=== PATIENT | male | born 1935 | race Caucasian/White ===

== ENCOUNTER → 2019-07-12 11:53 | Outpatient (BNVA) | payer MEDICARE, SELFPAY | PROVIDERS: Family Provider Family Medicine; PCP Family Medicine; Visit Provider Internal Medicine Cardiovascular Disease | DX: I25.10 Atherosclerotic heart disease of native coronary artery without angina pectoris (principal); E78.2 Mixed hyperlipidemia; I10 Essential (primary) hypertension; J44.9 Chronic obstructive pulmonary disease, unspecified | CPT/HCPCS: 80061 ==

== ENCOUNTER → 2020-03-13 11:52 | Outpatient (BNVA) | payer MEDICARE, SELFPAY | PROVIDERS: Family Provider Family Medicine; PCP Family Medicine; Visit Provider Internal Medicine Cardiovascular Disease | DX: R07.89 Other chest pain (principal); R06.02 Shortness of breath; I50.33 Acute on chronic diastolic (congestive) heart failure; I25.10 Atherosclerotic heart disease of native coronary artery without angina pectoris; E78.2 Mixed hyperlipidemia; I10 Essential (primary) hypertension | CPT/HCPCS: 80048; 83880 ==

== ENCOUNTER → 2020-03-31 09:11 | Outpatient (BNVA) | payer MEDICARE, SELFPAY | PROVIDERS: Family Provider Family Medicine; PCP Family Medicine; Visit Provider Internal Medicine Cardiovascular Disease | DX: I10 Essential (primary) hypertension (principal); I25.10 Atherosclerotic heart disease of native coronary artery without angina pectoris; R06.02 Shortness of breath; R07.89 Other chest pain | CPT/HCPCS: 80048; 83880 ==

== ENCOUNTER 2020-04-16 14:41 | Emergency (ER) | payer MEDICARE, SELFPAY ==
[2020-04-16] VITALS (14 sets, daily range): BP systolic 161–182; BP diastolic 68–82; PULSE 57–80; RESP 14–20; TEMP 36.4–36.7; O2SAT 93–98; BMI 26.2
--- NOTE | 2020-04-16 15:30 | XRR_ITS ---
PROCEDURE INFORMATION: Exam: XR Chest, 1 View Exam date and time: 04/16/2020 4:03 PM Age: 85 years old Clinical indication: Shortness of breath; Additional info: SOB TECHNIQUE: Imaging protocol: XR of the chest Views: 1 view. COMPARISON: [facility] Chest 2 views 07/17/2018 11:31 AM FINDINGS: Lungs: Unremarkable. No consolidation. Pleural space: Unremarkable. No pleural effusion. No pneumothorax. Heart/Mediastinum: Unremarkable. No cardiomegaly. Bones/joints: Unremarkable. XR/XR chest 1V portable [id number] IMPRESSION: No acute findings.
[2020-04-16] MEDS: albuterol 8 gm MDI 2 PUFF INHALATION (15:53)
--- NOTE | 2020-04-16 16:11 | W.ED.SOB ---
HPI - SOB/Dyspnea General: Chief Complaint: Infusion Basil Stated Complaint: NEEDS INFUSION, COVID++ Time Seen by Provider: 04/16/20 15:24 Source: patient Mode of arrival: ambulatory Limitations: no limitations History of Present Illness: HPI Narrative: 85-year-old male who states he has had a slight cough along with some dyspnea and low-grade fever. He was seen at urgent care today and had a rapid Covid that was positive. Patient was sent here for BM infusion he states that he would like to get that infusion. Patient's pulse ox here is 95% and he states that symptoms are mild. He does have a history of COPD and states he uses inhaler at home. He denies any chest pain. Denies any vomiting. Associated symptoms: Deny abdominal pain, chest pain, fever(s), nausea or vomiting Review of Systems Const: Reports: body aches; Denies: fever(s), chills or change in appetite Eyes: Denies: blurry vision or eye discomfort ENMT: Denies: throat pain or dental pain Card: Denies: chest pain Resp: Reports: dyspnea GI: Denies: abdominal pain, nausea, vomiting or diarrhea : Denies: dysuria Musc: Denies: neck pain or back pain Skin/Breast: Denies: rash Neuro: Denies: headache(s) Psych: Denies: depression [place]/Lymph: Denies: easy bruising All/Imm: Denies: urticaria PFSH ED PFSH: Medical History (Updated 04/16/20 @ 16:12 by Cam Garcia MD) ASHD (arteriosclerotic heart disease) Atypical chest pain An EKG was done which revealed a sinus bradycardia with a rate of [address]-T changes. Carotid artery stenosis COPD (chronic obstructive pulmonary disease) Glaucoma History of pancreatitis Hyperlipidemia Hypertension SOB (shortness of breath) Surgical History History of adenoidectomy History of atherectomy History of tonsillectomy Family History Other CAD (coronary artery disease) Social History Smoking and tobacco status: former smoker Alcohol intake: never Physical Exam Const: COMMON NORMALS: no acute distress, patient oriented x3 and healthy appearing HENMT: COMMON NORMALS: normocephalic and atraumatic HEAD & SCALP: normocephalic and atraumatic Eye: COMMON NORMALS: Equal, round and reactive pupils present and EOMs intact bilaterally PUPIL: Yes Equal, round and reactive pupils present Neck/C-Spine: COMMON NORMALS: full ROM and supple Chest: COMMONS NORMALS: normal inspection of the chest and normal palpation of entire chest wall Resp: COMMON NORMALS: normal respiratory effort, No retractions and No use of accessory muscles EFFORT & INSPECTION: Yes audible wheezes Cardio: COMMON NORMALS: regular rate, regular rhythm and No murmurs present (Cardio) RATE: regular rate RHYTHM: regular rhythm GI: COMMON NORMALS: Normal to inspection, nondistended, normoactive bowel sounds present, Soft to palpation, non-tender and no masses PALPATION: Yes Soft to palpation Extremity: COMMON NORMALS: normal to inspection and full ROM Neuro: COMMON NORMALS: patient oriented x3, moves all extremities and no focal motor deficits Psych: COMMON NORMALS: mental status grossly normal, Normal thought process present and cooperative THOUGHT PROCESS: Normal thought process present Skin: COMMON NORMALS: no rashes or lesions noted and no wounds GENERAL SKIN EXAM: no rashes or lesions noted Course Vital Signs: Vital signs: Vital Signs Temperature 97.9 F 04/16/20 17:06 Pulse Rate 57 L 04/16/20 17:06 Respiratory Rate 18 04/16/20 17:06 Blood Pressure 162/73 04/16/20 17:06 Pulse Oximetry 97 04/16/20 17:06 MDM - SOB/Dyspnea MDM Narrative: Medical decision making narrative: Paul presents here after a positive Covid test. Patient is requesting barium infusion and he does meet criteria. He is not requiring any oxygen and x-ray here is clear. Patient is fairly asymptomatic and does not require a further work-up. We will infused Bham and he has been well-appearing and stable for discharge. He is to follow-up his PCP in 3 to 5 days return to ER if worsening. He is to monitor his pulse ox and is to return if less than 92. He understands and agrees to plan. Imaging Data^: CXR: Attestation: I personally reviewed and interpreted this imaging study as follows: Radiologist's impression: [address] [address] XRay Report Signed Patient: Paul Epps Unit #: [id number] : 1935 Age/Sex: 85 / M ADM Date: 04/16/20 Loc: ER Room/Bed: Attending Dr: Ordering Provider/Ordering MD: Cam Garcia MD Date of Service: 04/16/20 Procedure(s): XR chest 1V portable [id number] Accession Number(s): [id number] Report Number: [id number] PROCEDURE INFORMATION: Exam: XR Chest, 1 View Exam date and time: 04/16/2020 4:03 PM Age: 85 years old Clinical indication: Shortness of breath; Additional info: SOB TECHNIQUE: Imaging protocol: XR of the chest Views: 1 view. COMPARISON: [facility] Chest 2 views 07/17/2018 11:31 AM FINDINGS: Lungs: Unremarkable. No consolidation. Pleural space: Unremarkable. No pleural effusion. No pneumothorax. Heart/Mediastinum: Unremarkable. No cardiomegaly. Bones/joints: Unremarkable. XR/XR chest 1V portable [id number] IMPRESSION: No acute findings. Discharge Plan Discharge Patient Disposition: Home Clinical Impression: COVID-19 Condition: Stable Prescriptions: No Action nitroglycerin [Nitrostat] 0.4 mg tablet, sublingual 0.4 mg SUBLINGUAL Q5M PRN (Reason: chest pains) RF: 0 fenofibrate nanocrystallized 145 mg tablet 145 mg PO DAILY@1800 RF: 0 hydrocodone-acetaminophen 5-325 mg tablet 1 tab PO Q8H PRN (Reason: Pain) RF: 0 tamsulosin [Flomax] 0.4 mg capsule 0.4 mg PO DAILY@0600 RF: 0 aspirin [Adult Low Dose Aspirin] 81 mg tablet,delayed release (DR/EC) 81 mg PO DAILY@0600 RF: 0 albuterol sulfate [Ventolin HFA] 90 mcg/actuation HFA aerosol inhaler 2 puff INHALATION Q6H PRN (Reason: Shortness Of Breath) RF: 0 cetirizine [Zyrtec] 10 mg tablet 5 mg PO DAILY@0600 PRN (Reason: allergy sypmpoms) RF: 0 Symbicort 80-4.5 mcg/actuation HFA aerosol inhaler 2 puff INHALATION Q12H RF: 0 carisoprodol 350 mg tablet 350 mg PO TID@0600,12,18 PRN (Reason: Pain) RF: 0 fluticasone furoate 27.5 mcg/actuation spray,suspension 2 spray INTRANASAL DAILY@0600 RF: 0 Lumigan 0.01 % drops 1 drp ophthalmic (eye) DAILY@0600 RF: 0 enalapril maleate 20 mg tablet 20 mg PO BID@0600,1800 RF: 0 amlodipine 2.5 mg tablet 2.5 mg PO DAILY@0600 RF: 0 pravastatin 80 mg tablet 80 mg PO DAILY@0600 RF: 0 metoprolol tartrate 50 mg tablet 100 mg PO BID@0600,1800 RF: 0 furosemide 20 mg tablet 20 mg PO DAILY@0600 RF: 0 Nitro-Time 6.5 mg capsule, extended release 6.5 mg PO BID@0600,1800 RF: 0 potassium chloride 10 mEq tablet,ER particles/crystals 10 meq PO DAILY@0600 RF: 0 Discharge Orders: Discharge ED (Routine); Ordered 04/16/20 Ordered By: Cam Garcia Referrals: Dakotah Burgess MD [Primary Care Provider] - 1-3 days Discharge Diet: Advance as tolerated Discharge Activity: Resume usual activity Patient Instructions: Upper Respiratory Infection (ED) Coding Level of Care 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
[2020-04-16] MEDS: dexamethasone 4 mg/mL INJ 10 MG IVP (16:13)
--- NOTE | 2020-04-16 17:59 | PC.NURSE ---
BAM infusion completed
--- NOTE | 2020-04-18 09:27 | DCPLANNER ---
Addendum entered by Meron Muñiz 04/28/20 10:55: Patients stated that patient is doing really good, no fever, breathing is good, no cough at this time. Addendum entered by Meron Muñiz 04/28/20 10:53: distributed generation project manager spoke with patients , she stated that patient was feeling really good. Patient went to his follow up appointment scheduled for 04.22.[address] Chandler. Patients stated that patient was taking at nap at this time, but he was feeling really good. Addendum entered by Meron Muñiz 04/21/20 15:02: Spoke with patient, he stated that he is getting better, he can breath better, no cough, no fever. Patient stated that he does have a head cold, and that his chest is good. He stated that it is a slow process but that he is getting better. distributed generation project manager reminded patient of his appointment tomorrow with Dr. Burgess. Original Note: late entry - distributed generation project manager had message that patient received the BAM infusion on 04.16.20. distributed generation project manager called and spoke with patient on 04.17.20. Patient stated that he tolerated the infusion well, that it did not seem to bother him. Stated that his biggest symptom was coughing which he stated was not as bad. Patient stated that he thought that he had a really bad cough and was spitting up green stuff. Stated that he never had a fever, but that he was short of breath, and that his shortness of breath has gotten better. distributed generation project manager asked patient if he had a follow up appointment with his primary care, patient stated that he did not. distributed generation project manager called [facility], a follow up appointment was scheduled for Wednesday, April 22, 2020 at 9:[address] Burgess. distributed generation project manager called patient and gave patient the appointment information.
== END 2020-04-16 19:06 | disposition home or self-care (01) ==
PROVIDERS: Emergency Provider Emergency Medicine; PCP Family Medicine
DX: U07.1 COVID-19 (principal); Z79.82 Long term (current) use of aspirin; J44.9 Chronic obstructive pulmonary disease, unspecified; E78.5 Hyperlipidemia, unspecified; I10 Essential (primary) hypertension; Z87.891 Personal history of nicotine dependence
CPT/HCPCS: 12345; 71045; 94640; 96365; 96375; 99283; J1100; J3535; J7050

== ENCOUNTER 2020-05-20 14:02 | Emergency (ER) | payer OTHER, MEDICARE, SELFPAY ==
[2020-05-20 14:04] VITALS: BP 136/88; PULSE 64; RESP 24; TEMP 36.2; O2SAT 93; BMI 25.8
--- NOTE | 2020-05-20 14:10 | ED_ITS ---
HPI - Male Genitourinary General: Stated complaint: passing blood Time Seen by Provider: 05/20/20 14:09 [facility] ED PFSH: Medical History (Updated 04/16/20 @ 16:12 by Cam Garcia MD) ASHD (arteriosclerotic heart disease) Atypical chest pain An EKG was done which revealed a sinus bradycardia with a rate of [address]-T changes. Carotid artery stenosis COPD (chronic obstructive pulmonary disease) Glaucoma History of pancreatitis Hyperlipidemia Hypertension SOB (shortness of breath) Surgical History History of adenoidectomy History of atherectomy History of tonsillectomy Family History Other CAD (coronary artery disease) Social History Smoking and tobacco status: former smoker Alcohol intake: never Discharge Plan Discharge Prescriptions: No Action nitroglycerin [Nitrostat] 0.4 mg tablet, sublingual 0.4 mg SUBLINGUAL Q5M PRN (Reason: chest pains) RF: 0 fenofibrate nanocrystallized 145 mg tablet 145 mg PO DAILY@1800 RF: 0 hydrocodone-acetaminophen 5-325 mg tablet 1 tab PO Q8H PRN (Reason: Pain) RF: 0 tamsulosin [Flomax] 0.4 mg capsule 0.4 mg PO DAILY@0600 RF: 0 aspirin [Adult Low Dose Aspirin] 81 mg tablet,delayed release (DR/EC) 81 mg PO DAILY@0600 RF: 0 albuterol sulfate [Ventolin HFA] 90 mcg/actuation HFA aerosol inhaler 2 puff INHALATION Q6H PRN (Reason: Shortness Of Breath) RF: 0 cetirizine [Zyrtec] 10 mg tablet 5 mg PO DAILY@0600 PRN (Reason: allergy sypmpoms) RF: 0 Symbicort 80-4.5 mcg/actuation HFA aerosol inhaler 2 puff INHALATION Q12H RF: 0 carisoprodol 350 mg tablet 350 mg PO TID@0600,12,18 PRN (Reason: Pain) RF: 0 fluticasone furoate 27.5 mcg/actuation spray,suspension 2 spray INTRANASAL DAILY@0600 RF: 0 Lumigan 0.01 % drops 1 drp ophthalmic (eye) DAILY@0600 RF: 0 enalapril maleate 20 mg tablet 20 mg PO BID@0600,1800 RF: 0 amlodipine 2.5 mg tablet 2.5 mg PO DAILY@0600 RF: 0 pravastatin 80 mg tablet 80 mg PO DAILY@0600 RF: 0 metoprolol tartrate 50 mg tablet 100 mg PO BID@0600,1800 RF: 0 furosemide 20 mg tablet 20 mg PO DAILY@0600 RF: 0 Nitro-Time 6.5 mg capsule, extended release 6.5 mg PO BID@0600,1800 RF: 0 potassium chloride 10 mEq tablet,ER particles/crystals 10 meq PO DAILY@0600 RF: 0 Coding Level of Care 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
[2020-05-20 14:14] VITALS: BP 136/88; PULSE 54; RESP 16; O2SAT 92
--- NOTE | 2020-05-20 14:18 | ED_ITS ---
Documented by User: SHANA Hay 05/22/20 07:08 HPI - GI Bleed General: Chief complaint: Abdominal Pain Stated complaint: passing blood Time Seen by Provider: 05/20/20 14:09 Source: patient Mode of arrival: ambulatory Limitations: no limitations History of Present Illness: HPI Narrative: Patient is a nice 85-year-old male who presents to ED today with a complaint of bloody stools. Patient tells me this morning for breakfast he had poached eggs that did not sit well . He states he went to the restroom and sat on the toilet and began feeling nauseous. He states he had 2-3 episodes of non-bloody vomit. Patient then states he defecated and noticed approximately a cup of bright red blood in his stool. Patient states since that episode he has had approximately 10 further episodes of hematochezia. He is having lower abdominal pain and an urge to defecate currently. He has not been running fevers. He has no urinary symptoms. He bray s have a history of internal hemorrhoids that have never caused him any previous issues. He has no history of GI bleeds. He is not on anticoagulation. MD complaint: gross hematochezia Onset (ago): hour(s) Pain Consistency: constant Exacerbating factors: bowel movement Associated symptoms: Reports abdominal pain; Denies chills, fever(s), headache(s), malaise, nausea, rash or vomiting Treatments Prior to Arrival: none Review of Systems Const: Denies: fever(s), chills, body aches, fatigue or malaise Card: Denies: chest pain Resp: Denies: dyspnea GI: Reports: abdominal pain and hematochezia; Denies: nausea, vomiting, diarrhea or constipation : Denies: flank pain, difficulty urinating, dysuria, urinary frequency, urinary urgency or urinary hesitancy Musc: Denies: neck pain or back pain Skin/Breast: Denies: rash Neuro: Denies: headache(s) [facility] ED PFSH: Medical History (Updated 05/20/20 @ 19:02 by DAMI Conroy) ASHD (arteriosclerotic heart disease) Atypical chest pain An EKG was done which revealed a sinus bradycardia with a rate of [address]-T changes. Carotid artery stenosis COPD (chronic obstructive pulmonary disease) Glaucoma History of pancreatitis Hyperlipidemia Hypertension SOB (shortness of breath) Surgical History History of adenoidectomy History of atherectomy History of tonsillectomy Family History Other CAD (coronary artery disease) Social History Smoking and tobacco status: former smoker Alcohol intake: never Physical Exam Const: COMMON NORMALS: no acute distress, average body habitus, patient oriented x3, no limitations, healthy appearing, alert and well nourished Resp: COMMON NORMALS: normal respiratory effort and clear to auscultation bilaterally EFFORT & INSPECTION: Yes able to speak in complete sentences AUSCULTATION: clear to auscultation bilaterally Cardio: COMMON NORMALS: regular rate and regular rhythm RATE: regular rate RHYTHM: regular rhythm GI: COMMON NORMALS: Normal to inspection, nondistended, normoactive bowel sounds present, Soft to palpation, No hepatosplenomegaly present and no masses PALPATION: Yes Soft to palpation, Yes Tenderness to palpation present (GI) (throughout lower abdomen) and Yes No hepatosplenomegaly present RECTAL EXAM: Yes visual inspection normal, Yes normal sphincter tone and Yes heme positive stool OTHER: pt had BM while in room and I was able to visualize; pt had no stool present but did have approx 20cc of bright red blood with mucous present : COMMON NORMALS: Yes no CVA tenderness BLADDER/KIDNEY EXAM: Yes no CVA tenderness Back/Pelvis: COMMON NORMALS: no CVA tenderness Neuro: COMMON NORMALS: patient oriented x3 SENSORIUM/ORIENTATION: Yes alert Skin: COMMON NORMALS: no rashes or lesions noted GENERAL SKIN EXAM: no rashes or lesions noted Course Vital Signs: Vital signs: Vital Signs Temperature 97.2 F L 05/20/20 14:04 Pulse Rate 55 L 05/20/20 17:12 Respiratory Rate 16 05/20/20 17:12 Blood Pressure 164/72 05/20/20 15:27 Pulse Oximetry 91 05/20/20 17:12 MDM - GI Bleed MDM Narrative: Medical decision making narrative: Patient currently is hemodynamically stable at this time. He has had two bloody stools while here measuring a total of approximately 30-44cc. Hemoglobin is 12.8. Care is transferred to DAMI Conroy. We are pending pts CMP at this time so CT can take him for his scan. Lab Data: Labs: Lab Results 05/20/20 05/20/20 05/20/20 Range/Units 14:30 14:30 14:30 WBC 10.7 H (4.0-10.0) 10^3/ uL RBC 4.09 L (4.1-5.3) 10^6/u L Hgb 12.8 (11.7-16.6) g/dL Hct 40.3 L (42.0-52.0) % MCV 98.5 H (80-94) fL MCH 31.3 (28.0-34.0) pg MCHC 31.8 (30.0-36.0) g/dL RDW 13.0 (12.1-15.1) % Plt Count 232 (130-400) 10^3/c mm MPV 9.2 (7.4-10.4) fL Neut % (Auto) 78.8 % Lymph % (Auto) 12.9 % Ida % (Auto) 6.6 % Eos % (Auto) 0.9 % Baso % (Auto) 0.3 % Neut # (Auto) 8.40 H (1.8-7.7) 10^3/u L Lymph # (Auto) 1.4 (0.8-4.8) 10^3/u L Ida # (Auto) 0.7 (0.2-0.9) 10^3/u L Eos # (Auto) 0.1 (0.0-0.8) 10^3/u L Baso # (Auto) 0.0 (0.0-0.1) 10^3/u L Nucleated RBC % (a uto) 0 % Nucleated RBCs # 0.0 /100WBC PT 13.20 (12.1-14.9) SECO NDS INR 0.97 (0.8-1.2) APTT 27.7 (23.9-36.7) SECO NDS Sodium Cancelled Potassium Cancelled Chloride Cancelled Carbon Dioxide Cancelled Anion Gap Cancelled BUN Cancelled Creatinine Cancelled GFR Calculation Cancelled Glucose Cancelled Calculated Osmolal ity Cancelled Lactic Acid (0.5-2.2) mmol/L Calcium Cancelled Total Bilirubin Cancelled AST Cancelled ALT Cancelled Alkaline Phosphata se Cancelled Total Protein Cancelled Albumin Cancelled Globulin Cancelled Urine Color (Yellow) Urine Appearance (CLEAR) Urine pH (5-7) Ur Specific Gravit y (1.005-1.030) Urine Protein (Negative) Urine Glucose (UA) (Normal) Urine Ketones (Negative) Urine Blood (Negative) Urine Nitrate (Negative) Urine Bilirubin (Negative) Urine Urobilinogen (Negative) mg/dL Ur Leukocyte Ana ase (Negative) 05/20/20 05/20/20 05/20/20 Range/Units 14:30 14:49 16:18 WBC (4.0-10.0) 10^3/ uL RBC (4.1-5.3) 10^6/u L Hgb (11.7-16.6) g/dL Hct (42.0-52.0) % MCV (80-94) fL MCH (28.0-34.0) pg MCHC (30.0-36.0) g/dL RDW (12.1-15.1) % Plt Count (130-400) 10^3/c mm MPV (7.4-10.4) fL Neut % (Auto) % Lymph % (Auto) % Ida % (Auto) % Eos % (Auto) % Baso % (Auto) % Neut # (Auto) (1.8-7.7) 10^3/u L Lymph # (Auto) (0.8-4.8) 10^3/u L Ida # (Auto) (0.2-0.9) 10^3/u L Eos # (Auto) (0.0-0.8) 10^3/u L Baso # (Auto) (0.0-0.1) 10^3/u L Nucleated RBC % (a uto) % Nucleated RBCs # /100WBC PT (12.1-14.9) SECO NDS INR (0.8-1.2) APTT (23.9-36.7) SECO NDS Sodium 135 L Potassium 5.3 H Chloride 101 Carbon Dioxide 22 Anion Gap 17.3 BUN 29 H Creatinine 1.7 H GFR Calculation Not Reportable Glucose 119 H Calculated Osmolal ity 287 Lactic Acid 1.0 (0.5-2.2) mmol/L Calcium 8.9 Total Bilirubin 0.6 AST 15 ALT 11 Alkaline Phosphata se 57 Total Protein 6.4 L Albumin 3.8 Globulin 2.6 Urine Color Yellow (Yellow) Urine Appearance Clear (CLEAR) Urine pH 5 (5-7) Ur Specific Gravit y 1.020 (1.005-1.030) Urine Protein Neg (Negative) Urine Glucose (UA) Norm (Normal) Urine Ketones Negative (Negative) Urine Blood Neg (Negative) Urine Nitrate Negative (Negative) Urine Bilirubin Neg (Negative) Urine Urobilinogen Norm (Negative) mg/dL Ur Leukocyte Ana ase Negative (Negative) Discharge Plan Discharge Patient Disposition: Home Clinical Impression: Colitis, Hematochezia, Hemorrhoids, internal Condition: Stable Prescriptions: New ciprofloxacin HCl 500 mg tablet 500 mg PO BID Qty: 14 RF: 0 Flagyl 500 mg tablet 500 mg PO BID 7 Days Qty: 14 RF: 0 No Action nitroglycerin [Nitrostat] 0.4 mg tablet, sublingual 0.4 mg SUBLINGUAL Q5M PRN (Reason: chest pains) RF: 0 fenofibrate nanocrystallized 145 mg tablet 145 mg PO DAILY@1800 RF: 0 hydrocodone-acetaminophen 5-325 mg tablet 1 - 2 tab PO TID PRN (Reason: Pain) RF: 0 tamsulosin [Flomax] 0.4 mg capsule 0.4 mg PO BID@06,18 RF: 0 aspirin [Adult Low Dose Aspirin] 81 mg tablet,delayed release (DR/EC) 81 mg PO DAILY@18 RF: 0 albuterol sulfate [Ventolin HFA] 90 mcg/actuation HFA aerosol inhaler 2 puff INHALATION QID PRN (Reason: Shortness Of Breath) RF: 0 cetirizine [Zyrtec] 10 mg tablet 10 mg PO DAILY PRN (Reason: Allergic Symptoms) RF: 0 Symbicort 80-4.5 mcg/actuation HFA aerosol inhaler 2 puff INHALATION Q12H RF: 0 carisoprodol 350 mg tablet 350 mg PO BID PRN (Reason: Pain) RF: 0 Lumigan 0.01 % drops 1 drp ophthalmic (eye) DAILY@18 RF: 0 enalapril maleate 20 mg tablet 20 mg PO BID@0600,1800 RF: 0 amlodipine 2.5 mg tablet 2.5 mg PO DAILY@0600 RF: 0 pravastatin 80 mg tablet 80 mg PO DAILY@18 RF: 0 metoprolol tartrate 50 mg tablet 75 mg PO Q12H RF: 0 furosemide 20 mg tablet 20 mg PO DAILY@0600 RF: 0 nitroglycerin [Nitro-Time] 6.5 mg capsule, extended release 6.5 mg PO BID@0600,1800 RF: 0 promethazine-DM 6.25-15 mg/5 mL Syrup 5 - 10 ml PO Q4H PRN (Reason: Cough) RF: 0 Vitamin C 500 mg Tablet 500 mg PO DAILY RF: 0 Flonase 50 mcg/actuation [facility],Suspension 2 spray INTRANASAL DAILY PRN (Reason: Allergy Symptoms) RF: 0 Centrum Silver Tablet 1 tab PO DAILY RF: 0 Spiriva with HandiHaler 18 mcg capsule, w/inhalation device 1 cap INHALATION DAILY RF: 0 Discharge Orders: Discharge ED (Routine); Ordered 05/20/20 Ordered By: Quinten Lopez Referrals: Dakotah Burgess MD [Primary Care Provider] - Discharge Diet: Advance as tolerated Discharge Activity: Increase activity as tolerated Patient Instructions: Rectal Bleeding (ED), Infectious Colitis (ED) Activity Restrictions/Additional Instructions: Follow-up with medical provider as directed. Take medications as prescribed. Return to the ER or your medical provider if condition worsens. Please read and understand discharge instructions. If any questions ask please. Follow-up Dr. Burgess see about getting a repeat abdominal imaging done to look at the area that was found in the right pectineus muscle. If symptoms do not improve follow-up with Dr. Burgess or return here. Can use Preparation H to help with hemorrhoids. Coding Level of Care Code ED Assistant Merchandiser for Chg Fwd Exam Detailed Documented by User: DAMI Conroy 05/21/20 02:00 HPI - GI Bleed General: Chief complaint: Abdominal Pain Stated complaint: passing blood Time Seen by Provider: 05/20/20 14:09 [facility] ED PFS: Medical History (Updated 05/20/20 @ 19:02 by DAMI Conroy) ASHD (arteriosclerotic heart disease) Atypical chest pain An EKG was done which revealed a sinus bradycardia with a rate of [address]-T changes. Carotid artery stenosis COPD (chronic obstructive pulmonary disease) Glaucoma History of pancreatitis Hyperlipidemia Hypertension SOB (shortness of breath) Surgical History History of adenoidectomy History of atherectomy History of tonsillectomy Family History Other CAD (coronary artery disease) Social History Smoking and tobacco status: former smoker Alcohol intake: never Course Vital Signs: Vital signs: Vital Signs Temperature 97.2 F L 05/20/20 14:04 Pulse Rate 55 L 05/20/20 17:12 Respiratory Rate 16 05/20/20 17:12 Blood Pressure 164/72 05/20/20 15:27 Pulse Oximetry 91 05/20/20 17:12 MDM - GI Bleed Lab Data: Labs: Lab Results 05/20/20 05/20/20 05/20/20 Range/Units 14:30 14:30 14:30 WBC 10.7 H (4.0-10.0) 10^3/ uL RBC 4.09 L (4.1-5.3) 10^6/u L Hgb 12.8 (11.7-16.6) g/dL Hct 40.3 L (42.0-52.0) % MCV 98.5 H (80-94) fL MCH 31.3 (28.0-34.0) pg MCHC 31.8 (30.0-36.0) g/dL RDW 13.0 (12.1-15.1) % Plt Count 232 (130-400) 10^3/c mm MPV 9.2 (7.4-10.4) fL Neut % (Auto) 78.8 % Lymph % (Auto) 12.9 % Ida % (Auto) 6.6 % Eos % (Auto) 0.9 % Baso % (Auto) 0.3 % Neut # (Auto) 8.40 H (1.8-7.7) 10^3/u L Lymph # (Auto) 1.4 (0.8-4.8) 10^3/u L Ida # (Auto) 0.7 (0.2-0.9) 10^3/u L Eos # (Auto) 0.1 (0.0-0.8) 10^3/u L Baso # (Auto) 0.0 (0.0-0.1) 10^3/u L Nucleated RBC % (a uto) 0 % Nucleated RBCs # 0.0 /100WBC PT 13.20 (12.1-14.9) SECO NDS INR 0.97 (0.8-1.2) APTT 27.7 (23.9-36.7) SECO NDS Sodium Cancelled Potassium Cancelled Chloride Cancelled Carbon Dioxide Cancelled Anion Gap Cancelled BUN Cancelled Creatinine Cancelled GFR Calculation Cancelled Glucose Cancelled Calculated Osmolal ity Cancelled Lactic Acid (0.5-2.2) mmol/L Calcium Cancelled Total Bilirubin Cancelled AST Cancelled ALT Cancelled Alkaline Phosphata se Cancelled Total Protein Cancelled Albumin Cancelled Globulin Cancelled Urine Color (Yellow) Urine Appearance (CLEAR) Urine pH (5-7) Ur Specific Gravit y (1.005-1.030) Urine Protein (Negative) Urine Glucose (UA) (Normal) Urine Ketones (Negative) Urine Blood (Negative) Urine Nitrate (Negative) Urine Bilirubin (Negative) Urine Urobilinogen (Negative) mg/dL Ur Leukocyte Ana ase (Negative) 05/20/20 05/20/20 05/20/20 Range/Units 14:30 14:49 16:18 WBC (4.0-10.0) 10^3/ uL RBC (4.1-5.3) 10^6/u L Hgb (11.7-16.6) g/dL Hct (42.0-52.0) % MCV (80-94) fL MCH (28.0-34.0) pg MCHC (30.0-36.0) g/dL RDW (12.1-15.1) % Plt Count (130-400) 10^3/c mm MPV (7.4-10.4) fL Neut % (Auto) % Lymph % (Auto) % Ida % (Auto) % Eos % (Auto) % Baso % (Auto) % Neut # (Auto) (1.8-7.7) 10^3/u L Lymph # (Auto) (0.8-4.8) 10^3/u L Ida # (Auto) (0.2-0.9) 10^3/u L Eos # (Auto) (0.0-0.8) 10^3/u L Baso # (Auto) (0.0-0.1) 10^3/u L Nucleated RBC % (a uto) % Nucleated RBCs # /100WBC PT (12.1-14.9) SECO NDS INR (0.8-1.2) APTT (23.9-36.7) SECO NDS Sodium 135 L Potassium 5.3 H Chloride 101 Carbon Dioxide 22 Anion Gap 17.3 BUN 29 H Creatinine 1.7 H GFR Calculation Not Reportable Glucose 119 H Calculated Osmolal ity 287 Lactic Acid 1.0 (0.5-2.2) mmol/L Calcium 8.9 Total Bilirubin 0.6 AST 15 ALT 11 Alkaline Phosphata se 57 Total Protein 6.4 L Albumin 3.8 Globulin 2.6 Urine Color Yellow (Yellow) Urine Appearance Clear (CLEAR) Urine pH 5 (5-7) Ur Specific Gravit y 1.020 (1.005-1.030) Urine Protein Neg (Negative) Urine Glucose (UA) Norm (Normal) Urine Ketones Negative (Negative) Urine Blood Neg (Negative) Urine Nitrate Negative (Negative) Urine Bilirubin Neg (Negative) Urine Urobilinogen Norm (Negative) mg/dL Ur Leukocyte Ana ase Negative (Negative) Discharge Plan Discharge Patient Disposition: Home Clinical Impression: Colitis, Hematochezia, Hemorrhoids, internal Condition: Stable Prescriptions: New ciprofloxacin HCl 500 mg tablet 500 mg PO BID Qty: 14 RF: 0 Flagyl 500 mg tablet 500 mg PO BID 7 Days Qty: 14 RF: 0 No Action nitroglycerin [Nitrostat] 0.4 mg tablet, sublingual 0.4 mg SUBLINGUAL Q5M PRN (Reason: chest pains) RF: 0 fenofibrate nanocrystallized 145 mg tablet 145 mg PO DAILY@1800 RF: 0 hydrocodone-acetaminophen 5-325 mg tablet 1 - 2 tab PO TID PRN (Reason: Pain) RF: 0 tamsulosin [Flomax] 0.4 mg capsule 0.4 mg PO BID@06,18 RF: 0 aspirin [Adult Low Dose Aspirin] 81 mg tablet,delayed release (DR/EC) 81 mg PO DAILY@18 RF: 0 albuterol sulfate [Ventolin HFA] 90 mcg/actuation HFA aerosol inhaler 2 puff INHALATION QID PRN (Reason: Shortness Of Breath) RF: 0 cetirizine [Zyrtec] 10 mg tablet 10 mg PO DAILY PRN (Reason: Allergic Symptoms) RF: 0 Symbicort 80-4.5 mcg/actuation HFA aerosol inhaler 2 puff INHALATION Q12H RF: 0 carisoprodol 350 mg tablet 350 mg PO BID PRN (Reason: Pain) RF: 0 Lumigan 0.01 % drops 1 drp ophthalmic (eye) DAILY@18 RF: 0 enalapril maleate 20 mg tablet 20 mg PO BID@0600,1800 RF: 0 amlodipine 2.5 mg tablet 2.5 mg PO DAILY@0600 RF: 0 pravastatin 80 mg tablet 80 mg PO DAILY@18 RF: 0 metoprolol tartrate 50 mg tablet 75 mg PO Q12H RF: 0 furosemide 20 mg tablet 20 mg PO DAILY@0600 RF: 0 nitroglycerin [Nitro-Time] 6.5 mg capsule, extended release 6.5 mg PO BID@0600,1800 RF: 0 promethazine-DM 6.25-15 mg/5 mL Syrup 5 - 10 ml PO Q4H PRN (Reason: Cough) RF: 0 Vitamin C 500 mg Tablet 500 mg PO DAILY RF: 0 Flonase 50 mcg/actuation [facility],Suspension 2 spray INTRANASAL DAILY PRN (Reason: Allergy Symptoms) RF: 0 Centrum Silver Tablet 1 tab PO DAILY RF: 0 Spiriva with HandiHaler 18 mcg capsule, w/inhalation device 1 cap INHALATION DAILY RF: 0 Discharge Orders: Discharge ED (Routine); Ordered 05/20/20 Ordered By: Quinten Lopez Referrals: Dakotah Burgess MD [Primary Care Provider] - Discharge Diet: Advance as tolerated Discharge Activity: Increase activity as tolerated Patient Instructions: Rectal Bleeding (ED), Infectious Colitis (ED) Activity Restrictions/Additional Instructions: Follow-up with medical provider as directed. Take medications as prescribed. R eturn to the ER or your medical provider if condition worsens. Please read and understand discharge instructions. If any questions ask please. Follow-up Dr. Burgess see about getting a repeat abdominal imaging done to look at the area that was found in the right pectineus muscle. If symptoms do not improve follow-up with Dr. Burgess or return here. Can use Preparation H to help with hemorrhoids. Coding Level of Care Code ED Assistant Merchandiser for Chg Fwd Exam Detailed
--- NOTE | 2020-05-20 14:21 | CTR_ITS ---
PROCEDURE INFORMATION: Exam: CT Abdomen And Pelvis With Contrast Exam date and time: 05/20/2020 6:09 PM Age: 85 years old Clinical indication: Abdominal pain; Localized; Lower; Additional info: Lower abdominal pain, hematochezia TECHNIQUE: Imaging protocol: Computed tomography of the abdomen and pelvis with intravenous contrast. Radiation optimization: All CT scans at this facility use at least one of these dose optimization techniques: automated exposure control; mA and/or kV adjustment per patient size (includes targeted exams where dose is matched to clinical indication); or iterative reconstruction. Contrast material: VISI 320; Contrast volume: 95 ml; Contrast route: INTRAVENOUS (IV); COMPARISON: No relevant prior studies available. RADIATION DOSE METRICS: Total DLP (mGy-cm): 572.54 FINDINGS: Liver: Subcentimeter hypodensity in the left liver lobe is too small to characterize but is most likely a cyst. No follow-up is recommended. Gallbladder and bile ducts: Normal. No calcified stones. No ductal dilation. Pancreas: Small calcifications in the uncinate process, consistent with prior calcific pancreatitis. Spleen: Normal. No splenomegaly. Adrenal glands: Normal. No mass. Kidneys and ureters: Mild perinephric stranding is most likely physiologic. The kidneys are otherwise unremarkable. No calculus or hydronephrosis. Stomach and bowel: Diverticulosis of the distal descending and proximal sigmoid colon. There is mild circumferential wall thickening and enhancement in the distal descending and proximal sigmoid colon without significant fat stranding. The remainder of the colon is unremarkable. The stomach and small bowel are unremarkable. Appendix: The appendix is visualized and is normal. Intraperitoneal space: Unremarkable. No free air. No significant fluid collection. Vasculature: Unremarkable. No abdominal aortic aneurysm. Lymph nodes: Unremarkable. No enlarged lymph nodes. Urinary bladder: Unremarkable as visualized. Reproductive: Coarse calcifications in the prostate. Bones/joints: Unremarkable. No acute fracture. Soft tissues: Unremarkable. Other findings: Hyperdense inhomogenous expansile lesion in the right pectineus muscle. CT/CT abdomen pelvis w con* [id number] IMPRESSION: 1. Mild wall thickening and enhancement in the distal descending and proximal sigmoid colon most likely represents infectious versus inflammatory colitis and less likely diverticulitis. 2. Inhomogenous hyperdense expansile lesion in the right pectineus muscle. This could represent an intramuscular hematoma. A soft tissue neoplasm is not excluded. Clinical correlation is recommended. This can be further evaluated with MRI. Radiation Dose CTDIVOL = (mGy): DLP = 572.54 (mGy-cm)
[2020-05-20 14:34] LABS: Basophils % 0.3 %; Eosinophils # 0.1 10^3/uL (0.0-0.8); Eosinophils % 0.9 %; Hematocrit 40.3 % (42.0-52.0); Hemoglobin 12.8 g/dL (11.7-16.6); Lymphocytes # 1.4 10^3/uL (0.8-4.8); Lymphocytes % 12.9 %; Mean Corpuscular HGB Conc 31.8 g/dL (30.0-36.0); Mean Corpuscular Hemoglobin 31.3 pg (28.0-34.0); Mean Corpuscular Volume 98.5 fL (80-94); Mean Platelet Volume 9.2 fL (7.4-10.4); Monocytes # 0.7 10^3/uL (0.2-0.9); Monocytes % 6.6 %; Neutrophils % 78.8 %; Nucleated Red Blood Cells % 0 %; Platelet Count 232 10^3/cmm (130-400); Red Blood Count 4.09 10^6/uL (4.1-5.3); White Blood Count 10.7 10^3/uL (4.0-10.0)
[2020-05-20 14:59] LABS: Add Urine Microscopic? NO
[2020-05-20 15:07] LABS: Bilirubin Urine Neg (Negative); Blood Urine Neg (Negative); Glucose Urine UA Norm (Normal); Ketones Urine Negative (Negative); Leukocyte Esterase Urine Negative (Negative); Nitrate Urine Negative (Negative); Protein Urine Neg (Negative); Urine Appearance Clear (CLEAR); Urine Color Yellow (Yellow); Urobilinogen Urine Norm (Negative); pH Urine 5 (5-7)
[2020-05-20 15:11] LABS: INR 0.97 (0.8-1.2); Partial Thromboplastin Time 27.7 SECONDS (23.9-36.7)
[2020-05-20 15:24] VITALS: BP 172/63; PULSE 65; RESP 14; O2SAT 94
[2020-05-20 15:27] VITALS: BP 134/64; BP 161/69; BP 164/72; PULSE 52; PULSE 53; PULSE 59
[2020-05-20] MEDS: ondansetron 2 mg/ML SDV 2 mL 4 MG IVP (17:11)
[2020-05-20] MEDS: morphine 4 mg/mL SDV 1 mL IVP (17:11)
[2020-05-20 17:12] VITALS: PULSE 55; RESP 16; O2SAT 91
[2020-05-20 17:59] LABS: Alanine Aminotransferase 11 U/L (0-41); Albumin Level 3.8 g/dL (3.5-5.2); Alkaline Phosphatase 57 IU/L (40-130); Anion Gap 17.3 (5-19); Aspartate Amino Transferase 15 U/L (0-40); Blood Urea Nitrogen 29 mg/dL (8-23); Calcium 8.9 mg/dL (8.5-10.5); Carbon Dioxide 22 mmol/L (22-29); Chloride 101 mmol/L (98-107); Globulin 2.6 g/dL (1.3-4.6); Glucose 119 mg/dL (65-115); Osmolality Calculated 287 mOsm/kg (285-295); Potassium 5.3 mmol/L (3.5-5.1); Sodium 135 mmol/L (136-145); Total Bilirubin 0.6 mg/dL (0.15-1.2); Total Protein 6.4 g/dL (6.6-8.7)
[2020-05-20] MEDS: iodixanol 320 mg/mL 100mL Btl IV (18:19)
[2020-05-20] MEDS: ciprofloxacin 500 mg Tablet PO (19:11)
[2020-05-20] MEDS: metroNIDAZOLE 500 MG Tablet PO (19:11)
== END 2020-05-20 19:18 | disposition home or self-care (01) ==
PROVIDERS: Physician Assistant; Emergency Provider Nurse Practitioner Family; PCP Family Medicine
DX: K52.9 Noninfective gastroenteritis and colitis, unspecified (principal); K92.1 Melena; K64.8 Other hemorrhoids; Z79.82 Long term (current) use of aspirin; J44.9 Chronic obstructive pulmonary disease, unspecified; E78.5 Hyperlipidemia, unspecified; I10 Essential (primary) hypertension; Z87.891 Personal history of nicotine dependence
CPT/HCPCS: 12345; 36415; 74177; 80053; 81003; 83605; 85025; 85610; 85730; 96374; 96375; 99283; J2270; J2405; Q9967

== ENCOUNTER 2021-01-26 13:05 | Inpatient (IN) | payer MEDICARE, SELFPAY ==
[2021-01-26] VITALS (14 sets, daily range): BP systolic 121–174; BP diastolic 62–86; PULSE 51–69; RESP 14–26; TEMP 36.6–36.9; O2SAT 92–97
--- NOTE | 2021-01-26 13:30 | XRR_ITS ---
PROCEDURE INFORMATION: Exam: XR Chest Exam date and time: 01/26/2021 1:30 PM Age: 85 years old Clinical indication: Shortness of breath for 1 week. Low oxygen saturation (87%) TECHNIQUE: Imaging protocol: XR of the chest. Views: 1 view. COMPARISON: CR XR chest 1V portable [id number] 04/16/2020 3:48 PM FINDINGS: Lungs: There are multiple masses identified in the chest bilaterally likely reflecting metastatic disease. The largest mass is situated in the mid right chest and measures 5.1 cm. Pleural spaces: No pleural effusion.; No pneumothorax. Heart/Mediastinum: The cardiac silhouette is approximately unchanged. No gross evidence of pneumomediastinum. Bones/joints: No gross fracture. XR/XR chest 1V portable [id number] IMPRESSION: Multiple masses identified in the chest bilaterally likely reflecting metastatic disease. Recommend CT chest with contrast to further assess.
--- NOTE | 2021-01-26 13:30 | ECG_ITS ---
[facility] Test Date: 2021-01-26 Pat Name: Paul Epps Department: Room: Gender: Male Posting Clerk: : [id number] Requested By: Unruly Arechiga Order Number: [id number] Reading MD: Measurements Intervals Sarah Rate: 65 P: 64 MA: 174 QRS: 71 QRSD: 98 T: 56 QT: 411 QTc: 428 Interpretive Statements SINUS RHYTHM WITH OCCASIONAL VENTRICULAR PREMATURE COMPLEXES No previous ECG available for comparison [id number]
[2021-01-26 13:46] LABS: Basophils % 0.2 %; Eosinophils # 0.1 10^3/uL (0.0-0.8); Eosinophils % 0.7 %; Hematocrit 33.2 % (42.0-52.0); Hemoglobin 10.6 g/dL (11.7-16.6); Lymphocytes % 9.3 %; Mean Corpuscular HGB Conc 31.9 g/dL (30.0-36.0); Mean Platelet Volume 8.6 fL (7.4-10.4); Monocytes # 0.9 10^3/uL (0.2-0.9); Monocytes % 9.1 %; Neutrophils # 8.22 10^3/uL (1.8-7.7); Neutrophils % 80.2 %; Nucleated Red Blood Cells % 0 %; Platelet Count 265 10^3/cmm (130-400); Red Blood Count 3.65 10^6/uL (4.1-5.3); Red Cell Distribution Width 13.1 % (12.1-15.1); White Blood Count 10.2 10^3/uL (4.0-10.0)
[2021-01-26 14:10] LABS: Troponin(5th) Baseline 16 ng/L (0-15)
--- NOTE | 2021-01-26 14:15 | W.ED.SOB ---
Documented by User: SHANA Iniguez 01/27/21 07:30 HPI - SOB/Dyspnea General: Chief Complaint: Shortness of Breath/Dyspnea Stated Complaint: SOB, LOW O2: 87% Time Seen by Provider: 01/26/21 13:30 History of Present Illness: HPI Narrative: Patient is an 85-year-old male comes to the ED with shortness of breath. Patient says approximately 3 days ago he noticed worsening shortness of breath when he was up and ambulating. Patient has had COVID-19 back in April 2020 and got the monoclonal antibody infusions at that time. Patient also has received both COVID-19 vaccinations. Denies any chest pain, cough or hemoptysis. He says he has had shortness of breath for a long time now but noticed a couple days ago got acutely worse. Denies worsening shortness of breath when lying flat. He is not on any oxygen at home. Says that he has a mass in his right groin region that is currently being evaluated for cancer. He endorses a decreased appetite and some generalized abdominal pain as well. Denies any fever, chills, nausea/vomiting, bladder or bowel symptoms. Associated symptoms: Deny abdominal pain, chest pain, fever(s), nausea, orthopnea, palpitations or vomiting Review of Systems Const: Reports: change in appetite (decreased); Denies: fever(s), chills or fatigue Eyes: Denies: change in vision or eye discomfort ENMT: Denies: throat pain, odynophagia, nasal discharge or nasal congestion Card: Reports: dyspnea on exertion; Denies: chest pain, palpitations, edema, swelling of feet/ankles or orthopnea Resp: Reports: dyspnea; Denies: productive cough or non-productive cough GI: Denies: abdominal pain, nausea, vomiting, diarrhea, constipation or hematochezia : Denies: flank pain, difficulty urinating, dysuria or hematuria Musc: Denies: neck pain, back pain or extremity swelling Skin/Breast: Denies: rash or new lesions Neuro: Denies: headache(s), numbness in extremities or weakness in extremities PFS ED PFSH: Medical History ASHD (arteriosclerotic heart disease) Atypical chest pain An EKG was done which revealed a sinus bradycardia with a rate of [address]-T changes. Carotid artery stenosis COPD (chronic obstructive pulmonary disease) COVID-19 Glaucoma History of pancreatitis Hyperlipidemia Hypertension SOB (shortness of breath) Surgical History History of adenoidectomy History of atherectomy History of tonsillectomy History of vasectomy Hx of cataract extraction Family History Mother Lung disease Other Family history non-contributory Denies family history of CAD (coronary artery disease) Clotting disorder Anesthesia complication Bleeding disorder Social History Smoking and tobacco status: former smoker Alcohol intake: never Physical Exam Const: COMMON NORMALS: no acute distress, patient oriented x3 and alert GENERAL APPEARANCE: cooperative HENMT: COMMON NORMALS: normocephalic HEAD & SCALP: normocephalic MOUTH: Normal oral and palatal mucosa present THROAT: posterior oropharynx normal and uvula midline Eye: COMMON NORMALS: Equal, round and reactive pupils present PUPIL: Yes Equal, round and reactive pupils present Neck/C-Spine: COMMON NORMALS: supple GENERAL: Yes normal visual inspection Resp: COMMON NORMALS: normal respiratory effort, No retractions and No use of accessory muscles EFFORT & INSPECTION: Yes able to speak in complete sentences and Yes tachypneic AUSCULTATION: wheezes expiratory wheezes and throughout and diminished lung sounds bilateral in the lower lung quispe Cardio: COMMON NORMALS: regular rate, regular rhythm, S1 normal heart sound present, S2 normal heart sound present, No gallops present (Cardio), No clicks present (Cardio), No murmurs present (Cardio) and Peripheral pulses 2+ throughout RATE: regular rate RHYTHM: regular rhythm HEART SOUNDS: S1 normal heart sound present and S2 normal heart sound present PERIPHERAL PULSES: Peripheral pulses 2+ throughout GI: COMMON NORMALS: Normal to inspection, nondistended, normoactive bowel sounds present, Soft to palpation, non-tender and no masses PALPATION: Yes Soft to palpation : COMMON NORMALS: Yes no CVA tenderness BLADDER/KIDNEY EXAM: Yes no CVA tenderness Back/Pelvis: COMMON NORMALS: no CVA tenderness Extremity: COMMON NORMALS: normal to inspection Neuro: COMMON NORMALS: patient oriented x3 and moves all extremities SENSORIUM/ORIENTATION: Yes alert Skin: GENERAL SKIN EXAM: dry skin Course Vital Signs: Vital signs: Vital Signs Temperature 97.4 F L 01/27/21 04:00 Pulse Rate 65 01/27/21 04:00 Respiratory Rate 18 01/27/21 04:00 Blood Pressure 161/74 01/27/21 04:00 Pulse Oximetry 91 01/27/21 04:00 MDM - SOB/Dyspnea MDM Narrative: Medical decision making narrative: Patient is an 85-year-old male comes to the ED with shortness of breath. On exam patient has wheezing throughout her lungs. He is currently on 2 L via nasal cannula and O2 sats around 95%. Chest x-ray shows multiple masses bilaterally possible metastatic disease. 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 Talk with Dr. Ruvalcaba in the ED and told him about patient case. Dr. Ruvalcaba contacted the hospitalist and had patient admitted to the hospitalist. Lab Data: Attestation: I reviewed the patient's lab results. Labs: Lab Results 01/26/21 01/26/21 01/26/21 13:40 13:40 13:40 WBC 10.2 10^3/uL H 10 ^3/uL (4.0-10.0) RBC 3.65 10^6/uL L 10 ^6/uL (4.1-5.3) Hgb 10.6 g/dL L g/dL (11.7-16.6) Hct 33.2 % L % (42.0-52.0) MCV 91.0 fl fl (80-94) MCH 29.0 pg pg (28.0-34.0) MCHC 31.9 g/dL g/dL (30.0-36.0) RDW 13.1 % % (12.1-15.1) Plt Count 265 10^3/cmm 10^3 /cmm (130-400) MPV 8.6 fL fL (7.4-10.4) Neut % (Auto) 80.2 % % Lymph % (Auto) 9.3 % % [place] % (Auto) 9.1 % % Eos % (Auto) 0.7 % % Baso % (Auto) 0.2 % % Neut # (Auto) 8.22 10^3/uL H 10 ^3/uL (1.8-7.7) Lymph # (Auto) 1.0 10^3/uL 10^3/ uL (0.8-4.8) [place] # (Auto) 0.9 10^3/uL 10^3/ uL (0.2-0.9) Eos # (Auto) 0.1 10^3/uL 10^3/ uL (0.0-0.8) Baso # (Auto) 0.0 10^3/uL 10^3/ uL (0.0-0.1) Nucleated RBC % (a uto) 0 % % Nucleated RBCs # 0.0 /100WBC /100W BC D-Dimer Sodium 134 mmol/L L mmol /L (136-145) Potassium 5.1 mmol/L mmol/L (3.5-5.1) Chloride 99 mmol/L mmol/L (98-107) Carbon Dioxide 25 mmol/L mmol/L (22-29) Anion Gap 15.1 (5-19) BUN 28 mg/dL H mg/dL (8-23) Creatinine 1.3 mg/dL H mg/dL (0.7-1.2) GFR Calculation Not Reportable Glucose 119 mg/dL H mg/dL (65-115) Calculated Osmolal ity 285 mOsm/kg mOsm/ kg (285-295) Calcium 9.0 mg/dL mg/dL (8.5-10.5) Iron TIBC % Saturation Unsat Iron Binding Total Bilirubin 0.4 mg/dL mg/dL (0.15-1.2) AST 12 U/L U/L (0-40) ALT 10 U/L U/L (0-41) Alkaline Phosphata se 78 IU/L IU/L (40-130) Troponin T Baselin e 16 ng/L H ng/L (0-15) Troponin T 120 Min [place] Troponin T NT-Pro-B Natriuret Pep 866 pg/mL H pg/mL (0-450) Total Protein 6.5 g/dL L g/dL (6.6-8.7) Albumin 3.6 g/dL g/dL (3.5-5.2) Globulin 2.9 g/dL g/dL (1.3-4.6) Procalcitonin TSH 01/26/21 01/26/2101/26/21 13:40 13:40 13:40 WBC RBC Hgb Hct MCV MCH MCHC RDW Plt Count MPV Neut % (Auto) Lymph % (Auto) [place] % (Auto) Eos % (Auto) Baso % (Auto) Neut # (Auto) Lymph # (Auto) [place] # (Auto) Eos # (Auto) Baso # (Auto) Nucleated RBC % (a uto) Nucleated RBCs # D-Dimer 1.21 ug/mIFEU H u g/mIFEU (0-0.59) Sodium Potassium Chloride Carbon Dioxide Anion Gap BUN Creatinine GFR Calculation Glucose Calculated Osmolal ity Calcium Iron 23 ug/dL L ug/dL (59-158) TIBC 267 mcg/dl mcg/dl % Saturation 8.6 % L % (20-50) Unsat Iron Binding 244 ug/dL ug/dL (112-347) Total Bilirubin AST ALT Alkaline Phosphata se Troponin T Baselin e Troponin T 120 Min [place] Troponin T NT-Pro-B Natriuret Pep Total Protein Albumin Globulin Procalcitonin 0.16 ng/mL ng/mL (0-0.5) TSH 1.47 uIU/mL uIU/m L Cancelled (0.27-4.20) 01/26/21 15:42 WBC RBC Hgb Hct MCV MCH MCHC RDW Plt Count MPV Neut % (Auto) Lymph % (Auto) [place] % (Auto) Eos % (Auto) Baso % (Auto) Neut # (Auto) Lymph # (Auto) [place] # (Auto) Eos # (Auto) Baso # (Auto) Nucleated RBC % (a uto) Nucleated RBCs # D-Dimer Sodium Potassium Chloride Carbon Dioxide Anion Gap BUN Creatinine GFR Calculation Glucose Calculated Osmolal ity Calcium Iron TIBC % Saturation Unsat Iron Binding Total Bilirubin AST ALT Alkaline Phosphata se Troponin T Baselin e Troponin T 120 Min [place] 15.22 ng/L H ng/L (0-15) [place] Troponin T -0.78 ABS# L ABS# (0-10) NT-Pro-B Natriuret Pep Total Protein Albumin Globulin Procalcitonin TSH Imaging Data^: CXR: Attestation: I personally reviewed and interpreted this imaging study as follows: Radiologist's impression: [address] [address] XRay Report Signed Patient: Paul Epps Unit #: [id number] : 1935 Age/Sex: 85 / M ADM Date: 01/26/21 Loc: ER Room/Bed: Attending Dr: Ordering Provider/Ordering MD: Unruly Arechiga Date of Service: 01/26/21 Procedure(s): XR chest 1V portable [id number] Accession Number(s): [id number] Report Number: [id number] PROCEDURE INFORMATION: Exam: XR Chest Exam date and time: 01/26/2021 1:30 PM Age: 85 years old Clinical indication: Shortness of breath for 1 week. Low oxygen saturation (87%) TECHNIQUE: Imaging protocol: XR of the chest. Views: 1 view. COMPARISON: CR XR chest 1V portable [id number] 04/16/2020 3:48 PM FINDINGS: Lungs: There are multiple masses identified in the chest bilaterally likely reflecting metastatic disease. The largest mass is situated in the mid right chest and measures 5.1 cm. Pleural spaces: No pleural effusion.; No pneumothorax. Heart/Mediastinum: The cardiac silhouette is approximately unchanged. No gross evidence of pneumomediastinum. Bones/joints: No gross fracture. XR/XR chest 1V portable [id number] IMPRESSION: Multiple masses identified in the chest bilaterally likely reflecting metastatic disease. Recommend CT chest with contrast to further assess. Dictated By: Sanjeev Wilburn Signed By: Sanjeev Wilburn Signed Date/Time: 01/26/211411 DD/ 11 CT Chest: Attestation: I personally reviewed and interpreted this imaging study as follows: Radiologist's impression: [address] [address] [address] Scan Report Signed with Addenda Patient: Paul Epps Unit #: [id number] : 1935 Age/Sex: 85 / M ADM Date: 01/26/21 Loc: ER Room/Bed: Attending Dr: Ordering Provider/Ordering MD: Unruly Arechiga Date of Service: 01/26/21 Procedure(s): CT chest abd pel w con* Accession Number(s): [id number] Report Number: [id number] ADDENDUM Addendum Dictated By: Addendum Signed By: Signed Date/Time: Addendum Cosigned By: Sanjeev Wilburn 1553 ADDENDUM Addendum Dictated By: Addendum Signed By: Signed Date/Time: Addendum Cosigned By: Sanjeev Wilburn [address]/CT chest abd pel w con* Findings discussed with SHANA Arechiga at 01/26/2021 3:53 PM CDT. Radiation Dose CTDIVOL = (mGy): DLP = 1080.47 1080.47 (mGy-cm) Addendum Dictated By: Sanjeev Wilburn Addendum Signed By: Sanjeev Wilburn Signed Date/Time: 01/26/211553 Addendum Cosigned By: ADDENDUM CT/CT chest abd pel w con* There is mass effect on the right femoral vein with possible direct invasion or thrombosis. Recommend ultrasound to further assess. Radiation Dose CTDIVOL = (mGy): DLP = 1080.47 1080.47 (mGy-cm) Addendum Dictated By: Sanjeev Wilburn Addendum Signed By: Sanjeev Wilburn Signed Date/Time: 01/26/211548 Addendum Cosigned By: PROCEDURE INFORMATION: Exam: CT Chest With Contrast; Diagnostic Exam date and time: 01/26/2021 2:19 PM Age: 85 years old Clinical indication: Abdominal tenderness with mass, lumbar swelling in the right groin. Cough and shortness of breath. Prior mastectomy. Decreased appetite. Shortness of breath with central abdominal tenderness and decreased appetite. TECHNIQUE: Imaging protocol: Diagnostic computed tomography of the chest with contrast. Radiation optimization: All CT scans at this facility use at least one of these dose optimization techniques: automated exposure control; mA and/or kV adjustment per patient size (includes targeted exams where dose is matched to clinical indication); or iterative reconstruction. Contrast material: VISI 320; Contrast volume: 95 ml; Contrast route: INTRAVENOUS (IV); COMPARISON: CR XR chest 1V portable [id number] 01/26/2021 1:40 PM RADIATION DOSE METRICS: Total DLP (mGy-cm): 1080.47 FINDINGS: Lungs: No pulmonary consolidation.; There are numerous pulmonary masses bilaterally compatible with metastatic disease. One of the larger pulmonary masses is situated in the lingula and measures 4.2 x 6.9 cm. This mass likely directly invade the anterior mediastinum. One of the larger masses in the right chest measures 4.8 x 4.1 cm (image 35). A left hilar mass measures 3.8 x 4.4 cm (image 34). A right hilar mass measures 1.7 x 2.6 cm (image 35). A mass in the right middle lobe measures 4.1 x 3.6 cm and likely directly invade the anterior mediastinal fat (image 49). Pleural spaces: No pleural effusion.; No pneumothorax. Heart: Coronary arterial calcifications are noted. No pericardial effusion. Mediastinal space: No hiatal hernia. Aorta: No thoracic aortic aneurysm. No thoracic aortic dissection. Lymph nodes: A left hilar lymph node measures 1.8 x 1.9 cm. A subcarinal lymph node measures 1.3 x 1.6 cm. An anterior mediastinal lymph node measures 0.9 x 1.0 cm (image 16). An AP window lymph node measures 1.0 x 1.3 cm (image 25). Bones/joints: No acute fracture is identified. IMPRESSION: 1. Numerous bilateral pulmonary and bilateral hilar masses compatible with metastatic disease. There is probable direct invasion of the anterior mediastinum bilaterally. 2. Mediastinal and left hilar lymphadenopathy is likely metastatic. 3. Coronary artery disease. PROCEDURE INFORMATION: Exam: CT Abdomen And Pelvis With Contrast Exam date and time: 01/26/2021 2:19 PM Age: 85 years old Clinical indication: Abdominal tenderness with mass, lumbar swelling in the right groin. Cough and shortness of breath. Prior mastectomy. Decreased appetite. Shortness of breath with central abdominal tenderness and decreased appetite. TECHNIQUE: Imaging protocol: Computed tomography of the abdomen and pelvis with contrast. Radiation optimization: All CT scans at this facility use at least one of these dose optimization techniques: automated exposure control; mA and/or kV adjustment per patient size (includes targeted exams where dose is matched to clinical indication); or iterative reconstruction. Contrast material: VISI 320; Contrast volume: 95 ml; Contrast route: INTRAVENOUS (IV); COMPARISON: CR XR chest 1V portable [id number] 01/26/2021 1:40 PM RADIATION DOSE METRICS: Total DLP (mGy-cm): 1080.47 FINDINGS: Liver: There are multiple hepatic masses measuring up to 2.3 cm (image 6) compatible with metastatic disease. A small hepatic cyst measures 0.8 cm (series 601, image 41). Gallbladder and bile ducts: The gallbladder is unremarkable. Pancreas: The pancreas is unremarkable. Spleen: The spleen is unremarkable. Adrenal glands: The adrenal glands are unremarkable. Kidneys and ureters: Additional small scattered nodules are noted in the abdomen. The kidneys are unremarkable. Stomach and bowel: The stomach and small bowel are unremarkable.; Colonic diverticulosis is seen without evidence of acute diverticulitis. Appendix: The appendix is unremarkable. Intraperitoneal space: No free intraperitoneal air is seen. There is a new nodule anterior to the left kidney that measures 0.9 cm (image 19). There is a new nodule in the anterior left epigastrium measuring 0.9 cm (image 24). There is a new nodule in the left upper quadrant measuring 0.7 cm (image 14). There is a new nodule in the right pelvis that measures 1 cm (image 63). There is a new nodule superficial to the left psoas muscle that measures 1 cm (image 45). A new nodule in the right perirenal fat measures 0.6 cm (image 34). There is a new nodule in the right paracolic gutter measuring 0.7 cm (image 35). Vasculature: No abdominal aortic aneurysm.; There is approximately 50% narrowing of the proximal renal arteries. There is at least 70% narrowing of the proximal superior mesenteric artery. Lymph nodes: No retroperitoneal lymphadenopathy. Urinary bladder: The bladder wall is mildly prominent. Correlate with urinalysis to assess for cystitis. Reproductive: The prostate measures 3.2 x 4.1 cm. Bones/joints: No acute fracture is identified. Soft tissues: Small fat containing umbilical and inguinal hernias. There is an enlarging, incompletely visualized mass involving the proximal right thigh that measures 11.5 x 12.1 cm. This is concerning for a sarcoma. CT/CT chest abd pel w con* IMPRESSION: 1. 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 Recommend MRI of the right thigh with and without contrast to further assess. 2. Multiple new hepatic masses compatible with metastatic disease 3. New nodules in the peritoneum and retroperitoneum compatible with metastatic disease. 4. The bladder wall is mildly prominent. Correlate with urinalysis to assess for cystitis. 5. Approximately 50% narrowing of the proximal renal arteries. 6. At least 70% narrowing of the proximal superior mesenteric artery. 7. Colonic diverticulosis is seen without evidence of acute diverticulitis. COMMENTS: Consistent with the [place] [employer]'s Incidental Findings Committee white paper (J Am Ladonna Radiol 2018): Any incidental renal lesion less than 1 cm or classified as too small to characterize, or any incidental cystic renal lesion characterized as simple-appearing, is likely benign. No follow-up imaging is recommended for these lesions per consensus recommendations based on imaging criteria. Radiation Dose CTDIVOL = (mGy): DLP = 1080.47 1080.47 (mGy-cm) Dictated By: Sanjeev Wilburn Signed By: Sanjeev Wilburn Signed Date/Time: 01/26/211548 DD/ 47 Discharge Plan Discharge Admit Provider: Jonathan Lenz Clinical Impression: SOB (shortness of breath), Metastatic cancer to lung Condition: Stable Coding Level of Care Code ED Smt Operator for Chg Fwd Exam Comprehensive Documented by User: Tomás Ruvalcaba MD 01/26/21 16:58 HPI - SOB/Dyspnea General: Chief Complaint: Shortness of Breath/Dyspnea Stated Complaint: SOB, LOW O2: 87% Time Seen by Provider: 01/26/21 13:30 [facility] ED PFS: Medical History ASHD (arteriosclerotic heart disease) Atypical chest pain An EKG was done which revealed a sinus bradycardia with a rate of [address]-T changes. Carotid artery stenosis COPD (chronic obstructive pulmonary disease) COVID-19 Glaucoma History of pancreatitis Hyperlipidemia Hypertension SOB (shortness of breath) Surgical History History of adenoidectomy History of atherectomy History of tonsillectomy History of vasectomy Hx of cataract extraction Family History Mother Lung disease Other Family history non-contributory Denies family history of CAD (coronary artery disease) Clotting disorder Anesthesia complication Bleeding disorder Social History Smoking and tobacco status: former smoker Alcohol intake: never Course Vital Signs: Vital signs: Vital Signs Temperature 97.4 F L 01/27/21 04:00 Pulse Rate 65 01/27/21 04:00 Respiratory Rate 18 01/27/21 04:00 Blood Pressure 161/74 01/27/21 04:00 Pulse Oximetry 91 01/27/21 04:00 MDM - SOB/Dyspnea MDM Narrative: Medical decision making narrative: Patient is an 85-year-old male comes to the ED with shortness of breath. Patient says approximately 3 days ago he noticed worsening shortness of breath when he was up and ambulating. Patient has had COVID-19 back in April 2020 and got the monoclonal antibody infusions at that time. Patient also has received both COVID-19 vaccinations. Denies any chest pain, cough or hemoptysis. He says he has had shortness of breath for a long time now but noticed a couple days ago got acutely worse. Denies worsening shortness of breath when lying flat. He is not on any oxygen at home. Says that he has a mass in his right groin region that is currently being evaluated for cancer. He endorses a decreased appetite and some generalized abdominal pain as well. Denies any fever, chills, nausea/vomiting, bladder or bowel symptoms. Associated symptoms: Deny abdominal pain, chest pain, fever(s), nausea, orthopnea, palpitations or vomiting I did discuss at length with Dr. Wall. He will see patient write additional orders. appears to have metastatic disease. Patient will be admitted to the hospital for further evaluation and treatment Lab Data: Labs: Lab Results 01/26/21 01/26/21 01/26/21 13:40 13:40 13:40 WBC 10.2 10^3/uL H 10 ^3/uL (4.0-10.0) RBC 3.65 10^6/uL L 10 ^6/uL (4.1-5.3) Hgb 10.6 g/dL L g/dL (11.7-16.6) Hct 33.2 % L % (42.0-52.0) MCV 91.0 fl fl (80-94) MCH 29.0 pg pg (28.0-34.0) MCHC 31.9 g/dL g/dL (30.0-36.0) RDW 13.1 % % (12.1-15.1) Plt Count 265 10^3/cmm 10^3 /cmm (130-400) MPV 8.6 fL fL (7.4-10.4) Neut % (Auto) 80.2 % % Lymph % (Auto) 9.3 % % [place] % (Auto) 9.1 % % Eos % (Auto) 0.7 % % Baso % (Auto) 0.2 % % Neut # (Auto) 8.22 10^3/uL H 10 ^3/uL (1.8-7.7) Lymph # (Auto) 1.0 10^3/uL 10^3/ uL (0.8-4.8) [place] # (Auto) 0.9 10^3/uL 10^3/ uL (0.2-0.9) Eos # (Auto) 0.1 10^3/uL 10^3/ uL (0.0-0.8) Baso # (Auto) 0.0 10^3/uL 10^3/ uL (0.0-0.1) Nucleated RBC % (a uto) 0 % % Nucleated RBCs # 0.0 /100WBC /100W BC D-Dimer Sodium 134 mmol/L L mmol /L (136-145) Potassium 5.1 mmol/L mmol/L (3.5-5.1) Chloride 99 mmol/L mmol/L (98-107) Carbon Dioxide 25 mmol/L mmol/L (22-29) Anion Gap 15.1 (5-19) BUN 28 mg/dL H mg/dL (8-23) Creatinine 1.3 mg/dL H mg/dL (0.7-1.2) GFR Calculation Not Reportable Glucose 119 mg/dL H mg/dL (65-115) Calculated Osmolal ity 285 mOsm/kg mOsm/ kg (285-295) Calcium 9.0 mg/dL mg/dL (8.5-10.5) Iron TIBC % Saturation Unsat Iron Binding Total Bilirubin 0.4 mg/dL mg/dL (0.15-1.2) AST 12 U/L U/L (0-40) ALT 10 U/L U/L (0-41) Alkaline Phosphata se 78 IU/L IU/L (40-130) Troponin T Baselin e 16 ng/L H ng/L (0-15) Troponin T 120 Min [place] Troponin T NT-Pro-B Natriuret Pep 866 pg/mL H pg/mL (0-450) Total Protein 6.5 g/dL L g/dL (6.6-8.7) Albumin 3.6 g/dL g/dL (3.5-5.2) Globulin 2.9 g/dL g/dL (1.3-4.6) Procalcitonin TSH 01/26/21 01/26/21 01/26/21 13:40 13:40 13:40 WBC RBC Hgb Hct MCV MCH MCHC RDW Plt Count MPV Neut % (Auto) Lymph % (Auto) [place] % (Auto) Eos % (Auto) Baso % (Auto) Neut # (Auto) Lymph # (Auto) [place] # (Auto) Eos # (Auto) Baso # (Auto) Nucleated RBC % (a uto) Nucleated RBCs # D-Dimer 1.21 ug/mIFEU H u g/mIFEU (0-0.59) Sodium Potassium Chloride Carbon Dioxide Anion Gap BUN Creatinine GFR Calculation Glucose Calculated Osmolal ity Calcium Iron 23 ug/dL L ug/dL (59-158) TIBC 267 mcg/dl mcg/dl % Saturation 8.6 % L % (20-50) Unsat Iron Binding 244 ug/dL ug/dL (112-347) Total Bilirubin AST ALT Alkaline Phosphata se Troponin T Baselin e Troponin T 120 Min [place] Troponin T NT-Pro-B Natriuret Pep Total Protein Albumin Globulin Procalcitonin 0.16 ng/mL ng/mL (0-0.5) TSH 1.47 uIU/mL uIU/m L Cancelled (0.27-4.20) 01/26/21 15:42 WBC RBC Hgb Hct MCV MCH MCHC RDW Plt Count MPV Neut % (Auto) Lymph % (Auto) [place] % (Auto) Eos % (Auto) Baso % (Auto) Neut # (Auto) Lymph # (Auto) [place] # (Auto) Eos # (Auto) Baso # (Auto) Nucleated RBC % (a uto) Nucleated RBCs # D-Dimer Sodium Potassium Chloride Carbon Dioxide Anion Gap BUN Creatinine GFR Calculation Glucose Calculated Osmolal ity Calcium Iron TIBC % Saturation Unsat Iron Binding Total Bilirubin AST ALT Alkaline Phosphata se Troponin T Baselin e Troponin T 120 Min [place] 15.22 ng/L H ng/L (0-15) [place] Troponin T -0.78 ABS# L ABS# (0-10) NT-Pro-B Natriuret Pep Total Protein Albumin Globulin Procalcitonin TSH Discharge Plan Discharge Admit Provider: Jonathan Lenz Clinical Impression: SOB (shortness of breath), Metastatic cancer to lung Condition: Stable Coding Level of Care Code ED Smt Operator for Chg Fwd Exam Comprehensive
[2021-01-26 14:19] LABS: Alanine Aminotransferase 10 U/L (0-41); Albumin Level 3.6 g/dL (3.5-5.2); Alkaline Phosphatase 78 IU/L (40-130); Anion Gap 15.1 (5-19); Aspartate Amino Transferase 12 U/L (0-40); Blood Urea Nitrogen 28 mg/dL (8-23); Carbon Dioxide 25 mmol/L (22-29); Chloride 99 mmol/L (98-107); Globulin 2.9 g/dL (1.3-4.6); Glucose 119 mg/dL (65-115); NT Pro B Type Natriuretic Pept 866 pg/mL (0-450); Osmolality Calculated 285 mOsm/kg (285-295); Potassium 5.1 mmol/L (3.5-5.1); Sodium 134 mmol/L (136-145); Total Bilirubin 0.4 mg/dL (0.15-1.2); Total Protein 6.5 g/dL (6.6-8.7)
--- NOTE | 2021-01-26 14:19 | CTR_ITS ---
PROCEDURE INFORMATION: Exam: CT Chest With Contrast; Diagnostic Exam date and time: 01/26/2021 2:19 PM Age: 85 years old Clinical indication: Abdominal tenderness with mass, lumbar swelling in the right groin. Cough and shortness of breath. Prior mastectomy. Decreased appetite. Shortness of breath with central abdominal tenderness and decreased appetite. TECHNIQUE: Imaging protocol: Diagnostic computed tomography of the chest with contrast. Radiation optimization: All CT scans at this facility use at least one of these dose optimization techniques: automated exposure control; mA and/or kV adjustment per patient size (includes targeted exams where dose is matched to clinical indication); or iterative reconstruction. Contrast material: VISI 320; Contrast volume: 95 ml; Contrast route: INTRAVENOUS (IV); COMPARISON: CR XR chest 1V portable [id number] 01/26/2021 1:40 PM RADIATION DOSE METRICS: Total DLP (mGy-cm): 1080.47 FINDINGS: Lungs: No pulmonary consolidation.; There are numerous pulmonary masses bilaterally compatible with metastatic disease. One of the larger pulmonary masses is situated in the lingula and measures 4.2 x 6.9 cm. This mass likely directly invade the anterior mediastinum. One of the larger masses in the right chest measures 4.8 x 4.1 cm (image 35). A left hilar mass measures 3.8 x 4.4 cm (image 34). A right hilar mass measures 1.7 x 2.6 cm (image 35). A mass in the right middle lobe measures 4.1 x 3.6 cm and likely directly invade the anterior mediastinal fat (image 49). Pleural spaces: No pleural effusion.; No pneumothorax. Heart: Coronary arterial calcifications are noted. No pericardial effusion. Mediastinal space: No hiatal hernia. Aorta: No thoracic aortic aneurysm. No thoracic aortic dissection. Lymph nodes: A left hilar lymph node measures 1.8 x 1.9 cm. A subcarinal lymph node measures 1.3 x 1.6 cm. An anterior mediastinal lymph node measures 0.9 x 1.0 cm (image 16). An AP window lymph node measures 1.0 x 1.3 cm (image 25). Bones/joints: No acute fracture is identified. IMPRESSION: 1. Numerous bilateral pulmonary and bilateral hilar masses compatible with metastatic disease. There is probable direct invasion of the anterior mediastinum bilaterally. 2. Mediastinal and left hilar lymphadenopathy is likely metastatic. 3. Coronary artery disease. PROCEDURE INFORMATION: Exam: CT Abdomen And Pelvis With Contrast Exam date and time: 01/26/2021 2:19 PM Age: 85 years old Clinical indication: Abdominal tenderness with mass, lumbar swelling in the right groin. Cough and shortness of breath. Prior mastectomy. Decreased appetite. Shortness of breath with central abdominal tenderness and decreased appetite. TECHNIQUE: Imaging protocol: Computed tomography of the abdomen and pelvis with contrast. Radiation optimization: All CT scans at this facility use at least one of these dose optimization techniques: automated exposure control; mA and/or kV adjustment per patient size (includes targeted exams where dose is matched to clinical indication); or iterative reconstruction. Contrast material: VISI 320; Contrast volume: 95 ml; Contrast route: INTRAVENOUS (IV); COMPARISON: CR XR chest 1V portable [id number] 01/26/2021 1:40 PM RADIATION DOSE METRICS: Total DLP (mGy-cm): 1080.47 FINDINGS: Liver: There are multiple hepatic masses measuring up to 2.3 cm (image 6) compatible with metastatic disease. A small hepatic cyst measures 0.8 cm (series 601, image 41). Gallbladder and bile ducts: The gallbladder is unremarkable. Pancreas: The pancreas is unremarkable. Spleen: The spleen is unremarkable. Adrenal glands: The adrenal glands are unremarkable. Kidneys and ureters: Additional small scattered nodules are noted in the abdomen. The kidneys are unremarkable. Stomach and bowel: The stomach and small bowel are unremarkable.; Colonic diverticulosis is seen without evidence of acute diverticulitis. Appendix: The appendix is unremarkable. Intraperitoneal space: No free intraperitoneal air is seen. There is a new nodule anterior to the left kidney that measures 0.9 cm (image 19). There is a new nodule in the anterior left epigastrium measuring 0.9 cm (image 24). There is a new nodule in the left upper quadrant measuring 0.7 cm (image 14). There is a new nodule in the right pelvis that measures 1 cm (image 63). There is a new nodule superficial to the left psoas muscle that measures 1 cm (image 45). A new nodule in the right perirenal fat measures 0.6 cm (image 34). There is a new nodule in the right paracolic gutter measuring 0.7 cm (image 35). Vasculature: No abdominal aortic aneurysm.; There is approximately 50% narrowing of the proximal renal arteries. There is at least 70% narrowing of the proximal superior mesenteric artery. Lymph nodes: No retroperitoneal lymphadenopathy. Urinary bladder: The bladder wall is mildly prominent. Correlate with urinalysis to assess for cystitis. Reproductive: The prostate measures 3.2 x 4.1 cm. Bones/joints: No acute fracture is identified. Soft tissues: Small fat containing umbilical and inguinal hernias. There is an enlarging, incompletely visualized mass involving the proximal right thigh that measures 11.5 x 12.1 cm. This is concerning for a sarcoma. CT/CT chest abd pel w con* IMPRESSION: 1. 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 Recommend MRI of the right thigh with and without contrast to further assess. 2. Multiple new hepatic masses compatible with metastatic disease 3. New nodules in the peritoneum and retroperitoneum compatible with metastatic disease. 4. The bladder wall is mildly prominent. Correlate with urinalysis to assess for cystitis. 5. Approximately 50% narrowing of the proximal renal arteries. 6. At least 70% narrowing of the proximal superior mesenteric artery. 7. Colonic diverticulosis is seen without evidence of acute diverticulitis. COMMENTS: Consistent with the [employer]'s Incidental Findings Committee white paper (J Am Ladonna Radiol 2018): Any incidental renal lesion less than 1 cm or classified as too small to characterize, or any incidental cystic renal lesion characterized as simple-appearing, is likely benign. No follow-up imaging is recommended for these lesions per consensus recommendations based on imaging criteria. Radiation Dose CTDIVOL = (mGy): DLP = 1080.47~1080.47 (mGy-cm)
[2021-01-26] MEDS: ipratropium-albuterol 3 mL Neb 6 ML INHALATION (14:56)
[2021-01-26] MEDS: iodixanol 320 mg/mL 100mL Btl IV (15:18)
--- NOTE | 2021-01-26 15:30 | ECG_ITS ---
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 Measurements Intervals Morrison Rate: 62 P: 70 WA: 183 QRS: 50 QRSD: 102 T: 47 QT: 432 QTc: 441 Interpretive Statements SINUS RHYTHM Compared to ECG 01/26/2021 13:46:51 Ventricular premature complex(es) no longer present Electronically Signed On 01-28-2021 23:36:33 CDT by Maverick Benavides M.D. [id number]
--- NOTE | 2021-01-26 15:53 | USR_ITS ---
PROCEDURE INFORMATION: Exam: US Duplex Right Lower Extremity Veins, Limited Exam date and time: 01/26/2021 3:53 PM Age: 85 years old Clinical indication: Swelling of right lower extremity. TECHNIQUE: Imaging protocol: Real-time Duplex ultrasound of the Right Lower Extremity with 2-D vazquez scale, color Doppler flow and spectral waveform analysis with image documentation. Limited exam was focused on the right lower extremity veins. COMPARISON: US ROR venous duplex LE RT 01/13/2021 10:47 AM FINDINGS: The common femoral, femoral, popliteal and posterior tibial veins are patent. There is appropriate compression and augmentation. Doppler interogation reveals venous blood flow. There is a large solid mass in the right thigh that measures 7.9 x 9.2 x 9.9 cm. US/[place] [id number] IMPRESSION: 1. No evidence of deep venous thrombosis. 2. 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
[2021-01-26 16:14] LABS: Troponin 5 2HR 15.22 ng/L (0-15)
[2021-01-26 16:16] LABS: Troponin 5 2HR Delta -0.78 ABS# (0-10)
[2021-01-26] MEDS: morphine 4 mg/mL SDV 1 mL 2 MG IVP (17:02)
[2021-01-26] MEDS: ondansetron 2 mg/ML SDV 2 mL 4 MG IVP (17:02)
[2021-01-26 17:27] LABS: D Dimer 1.21 ug/mIFEU (0-0.59)
--- NOTE | 2021-01-26 17:40 | PM.HP ---
Providers/Chief Complaint Primary Care Provider: Dakotah Burgess MD Chief Complaint: SOB, LOW O2: 87% History of Present Illness Paul Epps is a 85 year old male with past medical history of hypertension, hyperlipidemia, COVID-19 in April 16, 2020, post vaccination in August, CAD, COPD presented to the ER today with worsening difficulty in breathing. Patient states his breathing has been getting worse for last year and a half or 2 but has gotten acutely worse for last 1 month and more so for last 1 week. Currently is not able able to walk from his room to his bathroom without getting difficult out of breath. He has not used oxygen before. Denies any nausea vomiting, headache, fevers. States he is producing phlegm but has been chronically doing the same for last couple of months. Complains of pain in his right groin. He states he had a pea-sized mass 2 months ago which has been gradually increasing and currently is a size of a tennis ball. He also states he was to get a CT scan today for cancer work-up. Denies any chest pain. Showed a white count 10.2, hemoglobin of 10.6, D-dimer of 1.21, sodium of 134, creatinine of 1.3, BNP of [address] chest abdomen pelvis results as below. Review of Systems General: Reports: 10 or more systems reviewed and unremarkable except in HPI and below Const: Denies: fever(s), chills, body aches, change in appetite, change in weight, malaise, night sweats, diaphoresis, change in sleep pattern, daytime sleepiness or snoring Eyes: Denies: change in vision, blurry vision, photophobia, eye discomfort or eye discharge ENMT: Denies: throat pain, enlarged tonsils, hoarseness, mouth pain, oral sores, dry mouth, tinnitus, nasal congestion or post nasal drip Card: Denies: chest pain, palpitations, irregular heart rhythm, edema, swelling of feet/ankles, lightheadedness, syncope, pre-syncope, dyspnea on exertion, orthopnea, leg pain with exertion or acrocyanosis Resp: Denies: dyspnea, productive cough, non-productive cough, wheezing, stridor, pain on inspiration, change in phlegm color, hemoptysis or chest congestion GI: Denies: abdominal pain, nausea, vomiting, hematemesis, coffee ground emesis, dysphagia, heartburn, diarrhea, constipation, bloating, GI cramping, change in bowel habits, pain on defecation, hematochezia or melena : Denies: flank pain, difficulty urinating, dysuria, urinary frequency, urinary urgency, urinary hesitancy, urinary dribbling, difficulty starting urination, change in urine stream, nocturia or hematuria Musc: Denies: neck pain, back pain, extremity pain, joint pain, joint swelling, joint redness, joint stiffness or limited range of motion Neuro: Denies: headache(s), numbness in extremities, weakness in extremities, sensory changes, lack of coordination, difficulty walking, frequent falls, dizziness, vertigo, confusion, Slurred speech present, difficulty communicating thoughts or seizure-like activity Psych: Denies: anxiety, depression, mood swings, panic attacks, hopelessness or irritability Endo: Denies: polyuria, polydipsia, tired all the time, cold intolerance, excessive sweating, flushing or heat intolerance Milton/Lymph: Denies: easy bruising or easy bleeding All/Imm: Denies: tongue swelling, facial swelling or acute wheezing Medications/Allergies Home Medications Medication Instructions Recorded Confirmed Last Taken Type albuterol sulfate 90 mcg/actuation 2 puff INHALATION QID PRN 07/12/19 01/26/21 01/26/21 History aerosol inhaler budesonide-formoterol HFA 80 2 puff INHALATION Q12H 07/12/19 01/26/21 01/26/21 History mcg-4.5 mcg/actuation aerosol inhaler carisoprodol 350 mg tablet 350 mg PO BID PRN 07/12/19 01/26/21 01/26/21 History cetirizine 10 mg tablet 10 mg PO DAILY PRN 07/12/19 01/26/21 05/18/20 History hydrocodone 5 mg-acetaminophen 325 1 - 2 tab PO TID PRN 07/12/19 01/26/21 01/26/21 History mg tablet tamsulosin 0.4 mg capsule 0.4 mg PO BID@07/12/19 01/26/21 01/26/21 History bimatoprost [Lumigan] 1 drp OPHTHALMIC (EYE) DAILY@04/16/20 01/26/21 05/19/20 History ascorbic acid (vitamin C) [Vitamin 500 mg PO DAILY 05/20/20 01/26/21 01/26/21 History C] qmcwlrexygjt-dnwcntxp-nzugyp 1 tab PO DAILY 05/20/20 01/26/21 01/26/21 History [Centrum Silver] tiotropium bromide [Spiriva with 1 cap INHALATION DAILY 05/20/20 01/26/21 05/20/20 History HandiHaler] amlodipine 2.5 mg tablet 2.5 mg PO DAILY@0600 #90 tab 06/25/20 01/26/21 01/26/21 Rx aspirin 81 mg tablet,delayed 81 mg PO DAILY@18 #90 tab 06/25/20 01/26/21 01/25/21 Rx release enalapril maleate 20 mg tablet 20 mg PO BID@0600,1800 #180 tab 06/25/20 01/26/21 01/26/21 Rx fenofibrate nanocrystallized 145 145 mg PO DAILY@1800 #90 tab 06/25/20 01/26/21 01/26/21 Rx mg tablet furosemide 20 mg tablet 20 mg PO DAILY@0600 #90 tab 06/25/20 01/26/21 01/26/21 Rx nitroglycerin 0.4 mg sublingual 0.4 mg SUBLINGUAL Q5M PRN #50 tab 06/25/20 01/26/21 Unknown Rx tablet budesonide-formoterol HFA 160 2 puff INHALATION BID g 12/18/20 01/26/21 Unknown History mcg-4.5 mcg/actuation aerosol inhaler metoprolol tartrate 50 mg tablet 50 mg PO BID #180 tab 12/18/20 01/26/21 01/26/21 Rx nitroglycerin 6.5 mg 6.5 mg PO BID@0600,1800 #180 cap 01/13/21 01/26/21 01/26/21 Rx capsule,extended release pravastatin 80 mg PO DAILY 01/26/21 01/26/21 01/26/21 History Allergies Allergy/AdvReac Type Severity Reaction Status Date / Time ezetimibe [From Vytorin] Allergy Unknown unknown Verified 12/18/20 08:08 simvastatin [From Vytorin] Allergy Unknown unknown Verified 12/18/20 08:08 Sulfa (Sulfonamide Allergy Unknown shortness Verified 12/18/20 08:08 Antibiotics) of breath, rash PFSH Acute PFSH: Medical History (Updated 01/26/21 @ 17:44 by Jonathan Lenz MD) ASHD (arteriosclerotic heart disease) Atypical chest pain An EKG was done which revealed a sinus bradycardia with a rate of [address]-T changes. Carotid artery stenosis COPD (chronic obstructive pulmonary disease) COVID-19 Glaucoma History of pancreatitis Hyperlipidemia Hypertension SOB (shortness of breath) Surgical History (Updated 01/26/21 @ 17:44 by Jonathan Lenz MD) History of adenoidectomy History of atherectomy History of tonsillectomy History of vasectomy Hx of cataract extraction Family History Mother Lung disease Other Family history non-contributory Denies family history of CAD (coronary artery disease) Clotting disorder Anesthesia complication Bleeding disorder Social History Smoking and tobacco status: former smoker Alcohol intake: never Vitals/I&O/Wt Last Vital Signs Temp 98 F 01/26/21 17:04 Pulse 69 01/26/21 17:04 Resp 22 H 01/26/21 17:04 BP 174/75 01/26/21 17:04 Pulse Ox 95 01/26/21 17:04 Weight last 48 hrs Weight 77.111 kg Physical Exam Narrative: EXAM NARRATIVE: General: No acute distress, AO x3, chronically sick appearing HEENT: PERRLA, pupils bilaterally equal and reactive Chest: Bilateral breath sounds, bilateral coarse crepitations present, equal good air entry bilaterally CVS: S1-S2 regular, no murmurs, no tachycardia, no gallops, no rubs Abdomen: Soft, nontender, mass felt in right lower quadrant and groin area, bowel sounds present, Neuro: No focal deficits, no facial deformity, AO x3, power 5/5 in all limbs Data : 01/26/21 13:40 01/26/21 13:40 Other Labs: Laboratory Results WBC 10.2 10^3/uL (4.0-10.0) H 01/26/21 13:40 RBC 3.65 10^6/uL (4.1-5.3) L 01/26/21 13:40 Hgb 10.6 g/dL (11.7-16.6) L 01/26/21 13:40 Hct 33.2 % (42.0-52.0) L 01/26/21 13:40 MCV 91.0 fl (80-94) 01/26/21 13:40 MCH 29.0 pg (28.0-34.0) 01/26/21 13:40 MCHC 31.9 g/dL (30.0-36.0) 01/26/21 13:40 RDW 13.1 % (12.1-15.1) 01/26/21 13:40 Plt Count 265 10^3/cmm (130-400) 01/26/21 13:40 MPV 8.6 fL (7.4-10.4) 01/26/21 13:40 Neut % (Auto) 80.2 % 01/26/21 13:40 Lymph % (Auto) 9.3 % 01/26/21 13:40 Greer % (Auto) 9.1 % 01/26/21 13:40 Eos % (Auto) 0.7 % 01/26/21 13:40 Baso % (Auto) 0.2 % 01/26/21 13:40 Neut # (Auto) 8.22 10^3/uL (1.8-7.7) H 01/26/21 13:40 Lymph # (Auto) 1.0 10^3/uL (0.8-4.8) 01/26/21 13:40 Greer # (Auto) 0.9 10^3/uL (0.2-0.9) 01/26/21 13:40 Eos # (Auto) 0.1 10^3/uL (0.0-0.8) 01/26/21 13:40 Baso # (Auto) 0.0 10^3/uL (0.0-0.1) 01/26/21 13:40 Nucleated RBC % (auto) 0 % 01/26/21 13:40 Nucleated RBCs # 0.0 /100WBC 01/26/21 13:40 D-Dimer 1.21 ug/mIFEU (0-0.59) H 01/26/21 13:40 Sodium 134 mmol/L (136-145) L 01/26/21 13:40 Potassium 5.1 mmol/L (3.5-5.1) 01/26/21 13:40 Chloride 99 mmol/L (98-107) 01/26/21 13:40 Carbon Dioxide 25 mmol/L (22-29) 01/26/21 13:40 Anion Gap 15.1 (5-19) 01/26/21 13:40 BUN 28 mg/dL (8-23) H 01/26/21 13:40 Creatinine 1.3 mg/dL (0.7-1.2) H 01/26/21 13:40 GFR Calculation Not Reportable 01/26/21 13:40 Glucose 119 mg/dL (65-115) H 01/26/21 13:40 Calculated Osmolality 285 mOsm/kg (285-295) 01/26/21 13:40 Calcium 9.0 mg/dL (8.5-10.5) 01/26/21 13:40 Total Bilirubin 0.4 mg/dL (0.15-1.2) 01/26/21 13:40 AST 12 U/L (0-40) 01/26/21 13:40 ALT 10 U/L (0-41) 01/26/21 13:40 Alkaline Phosphatase 78 IU/L (40-130) 01/26/21 13:40 Troponin T Baseline 16 ng/L (0-15) H 01/26/21 13:40 Troponin T 120 Minute 15.22 ng/L (0-15) H 01/26/21 15:42 Delta Troponin T -0.78 ABS# (0-10) L 01/26/21 15:42 NT-Pro-B Natriuret Pep 866 pg/mL (0-450) H 01/26/21 13:40 Total Protein 6.5 g/dL (6.6-8.7) L 01/26/21 13:40 Albumin 3.6 g/dL (3.5-5.2) 01/26/21 13:40 Globulin 2.9 g/dL (1.3-4.6) 01/26/21 13:40 Impressions Chest X-Ray 01/26/21 13:30 IMPRESSION: Multiple masses identified in the chest bilaterally likely reflecting metastatic disease. Recommend CT chest with contrast to further assess. Chest/Abdomen/Pelvis CT 01/26/21 14:19 IMPRESSION: 1. 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 Recommend MRI of the right thigh with and without contrast to further assess. 2. Multiple new hepatic masses compatible with metastatic disease 3. New nodules in the peritoneum and retroperitoneum compatible with metastatic disease. 4. The bladder wall is mildly prominent. Correlate with urinalysis to assess for cystitis. 5. Approximately 50% narrowing of the proximal renal arteries. 6. At least 70% narrowing of the proximal superior mesenteric artery. 7. Colonic diverticulosis is seen without evidence of acute diverticulitis. COMMENTS: Consistent with the [employer]'s Incidental Findings Committee white paper (J Am Ladonna Radiol 2018): Any incidental renal lesion less than 1 cm or classified as too small to characterize, or any incidental cystic renal lesion characterized as simple-appearing, is likely benign. No follow-up imaging is recommended for these lesions per consensus recommendations based on imaging criteria. Radiation Dose CTDIVOL = (mGy): DLP = 1080.47~1080.47 (mGy-cm) ADDENDUM: 01/26/21 1549 There is mass effect on the right femoral vein with possible direct invasion or thrombosis. Recommend ultrasound to further assess. Radiation Dose CTDIVOL = (mGy): DLP = 1080.47~1080.47 (mGy-cm) ADDENDUM: 01/26/21 1554 Findings discussed with SHANA Arechiga at 01/26/2021 3:53 PM CDT. Radiation Dose CTDIVOL = (mGy): DLP = 1080.47~1080.47 (mGy-cm) Venous Duplex 01/26/21 15:53 IMPRESSION: 1. No evidence of deep venous thrombosis. 2. 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 A&P Assessment and plan (1) Hypoxia: Status: Acute (2) SOB (shortness of breath): Status: Acute (3) Metastatic cancer to lung: Status: Acute (4) Metastatic cancer to liver: Status: Acute (5) Hyperlipidemia: Status: Acute Qualifiers: Hyperlipidemia type: mixed hyperlipidemia Qualified Code(s): E78.2 - Mixed hyperlipidemia (6) Hypertension: Status: Acute Qualifiers: Hypertension type: essential hypertension Qualified Code(s): I10 - Essential (primary) hypertension (7) ASHD (arteriosclerotic heart disease): Status: Acute (8) COPD (chronic obstructive pulmonary disease): Status: Acute Qualifiers: COPD type: unspecified COPD Qualified Code(s): J44.9 - Chronic obstructive pulmonary disease, unspecified Additional A&P Information Hypoxia/shortness of breath: Most likely secondary to metastatic cancer to lung. Cannot rule out pulmonary embolism versus superadded bacterial pneumonia. CT scan done with contrast but not CTA so cannot rule out pulmonary embolism. Check D-dimer. Full dose Lovenox 1 mg/kg body weight daily for now. Check MRSA swab, sputum culture, blood culture, urine Legionella, bacterial antigen. For now start patient on community-acquired pneumonia therapy with azithromycin and ceftriaxone. DuoNeb 6 hourly, budesonide twice daily. Solu-Medrol 40 mg IV twice daily. COVID-19 PCR. Isolation precautions. Patient is fully vaccinated and so has his in August. can stay with patient especially as per goals of care discussion. Continue other chronic medication including amlodipine, aspirin, fenofibrate, metoprolol, Flomax, pravastatin. Hypertension: Goal blood pressure less than 140/90 mmHg. Continue home dose of amlodipine. Will increase medicines as needed. Goals of care: Given a possible metastatic disease of high likelihood with mets to liver, lungs we discussed the options with patient and patient's at bedside of possible biopsy, pathology and subsequent chemotherapy/radiation therapy depending on the results versus possible hospice given the extent of metastasis. Patient states he is going to be 86 next year month and he has had a good life and he does not want to go through the biopsy and subsequent chemotherapy for radiation therapy and would rather be comfortable in his left days and let nature takes its own course. CODE STATUS: DNR/DNI. Hospice referral sent out. Cardiac regular diet. Full dose Lovenox will help with DVT prophylaxis. Famotidine for PUD prophylaxis. Attestations Medical Necessity Statement*: Admission for more than 2 midnights for hypoxia secondary to metastatic cancer to lung, possible superadded community-acquired pneumonia while hospice referral is sent out. Time Spent in Patient Care: Greater than 35 minutes (>than 50% of time spent in counselling and/or direct pt care on unit). Coding Level of Care Code Acute [employer]ap [employer] for [facility] Fwd Diagnoses Hypoxia R09.02 SOB (shortness of breath) R06.02 Metastatic cancer to lung C78.00 Metastatic cancer to liver C78.7 Hyperlipidemia E78.2 Hyperlipidemia type: mixed hyperlipidemia Hypertension I10 Hypertension type: essential hypertension ASHD (arteriosclerotic heart disease) I25.10 COPD (chronic obstructive pulmonary disease) J44.9 COPD type: unspecified COPD
[2021-01-26] MEDS: famotidine 20 mg/2 mL INJ IVP (17:49)
[2021-01-26] MEDS: cefTRIAXone 1,000 MG in sodium chloride 0.9% (plus) 50 ML 100 MG IV (17:49)
[2021-01-26] MEDS: enoxaparin 80 mg/0.8 mL Syringe SUBCUT (17:52)
[2021-01-26 18:17] LABS: Procalcitonin 0.16 ng/mL (0-0.5); Thyroid Stimulating Hormone 1.47 uIU/mL (0.27-4.20)
[2021-01-26 18:28] LABS: Iron 23 ug/dL (59-158); Percent Saturation 8.6 % (20-50); Total Iron Binding Capacity 267 mcg/dl; Unsaturated Iron Binding 244 ug/dL (112-347)
[2021-01-26] MEDS: aspirin 81 mg EC Tablet PO (18:32)
[2021-01-26] MEDS: metoprolol tartrate 50 mg Tablet PO (18:33)
[2021-01-26 18:54] LABS: SARS Covid-2 Antigen Positive (Negative)
[2021-01-26 19:07] LABS: Add Urine Microscopic? NO; Charge for UA Resulting for Rev
[2021-01-26 19:20] LABS: Bilirubin Urine Neg (Negative); Blood Urine Neg (Negative); Glucose Urine UA Norm (Normal); Ketones Urine Negative (Negative); Leukocyte Esterase Urine Negative (Negative); Nitrate Urine Negative (Negative); Protein Urine Neg (Negative); Urine Appearance Clear (CLEAR); Urine Color Yellow (Yellow); Urobilinogen Urine Norm (Negative); pH Urine 5 (5-7)
--- NOTE | 2021-01-26 19:30 | ECG_ITS ---
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 Measurements Intervals [place] Rate: 66 P: 68 MO: 187 QRS: 57 QRSD: 101 T: 49 QT: 399 QTc: 421 Interpretive Statements SINUS RHYTHM Compared to ECG 01/26/2021 15:56:17 No significant changes Electronically Signed On 01-28-2021 23:39:19 CDT by Maverick Benavides M.D. [id number]
[2021-01-26] MEDS: budesonide 0.5 mg/2 mL Neb INHALATION (19:51)
[2021-01-26] MEDS: ipratropium-albuterol 3 mL Neb INHALATION (19:51)
[2021-01-26] MEDS: tamsulosin 0.4 mg Capsule PO (20:08)
[2021-01-26] MEDS: ferrous gluconate 324 mg Tablet PO (20:08)
[2021-01-26] MEDS: HYDROcodone-acetaminophen 5-325 mg Tablet 1 TAB PO (20:08)
[2021-01-26] MEDS: benzonatate 100 mg Capsule PO (20:08)
[2021-01-27] VITALS (11 sets, daily range): BP systolic 130–161; BP diastolic 52–74; PULSE 56–71; RESP 14–20; TEMP 36.3–36.8; O2SAT 91–97
[2021-01-27 05:44] LABS: Basophils % 0.1 %; Hematocrit 34.4 % (42.0-52.0); Hemoglobin 10.7 g/dL (11.7-16.6); Lymphocytes # 0.5 10^3/uL (0.8-4.8); Mean Corpuscular HGB Conc 31.1 g/dL (30.0-36.0); Mean Corpuscular Hemoglobin 28.2 pg (28.0-34.0); Mean Corpuscular Volume 90.8 fl (80-94); Mean Platelet Volume 9.1 fL (7.4-10.4); Monocytes # 0.2 10^3/uL (0.2-0.9); Monocytes % 3.2 %; Neutrophils # 6.39 10^3/uL (1.8-7.7); Neutrophils % 89.1 %; Nucleated Red Blood Cells % 0 %; Platelet Count 261 10^3/cmm (130-400); Red Blood Count 3.79 10^6/uL (4.1-5.3); Red Cell Distribution Width 13.1 % (12.1-15.1); White Blood Count 7.2 10^3/uL (4.0-10.0)
[2021-01-27] MEDS: tamsulosin 0.4 mg Capsule PO ×2 (06:00→17:16)
[2021-01-27] MEDS: amlodipine 5 mg Tablet 2.5 MG PO (06:00)
[2021-01-27] MEDS: famotidine 20 mg/2 mL INJ IVP ×2 (06:00→17:16)
[2021-01-27 06:03] LABS: Alanine Aminotransferase 9 U/L (0-41); Albumin Level 3.4 g/dL (3.5-5.2); Alkaline Phosphatase 78 IU/L (40-130); Anion Gap 16.3 (5-19); Aspartate Amino Transferase 11 U/L (0-40); Blood Urea Nitrogen 27 mg/dL (8-23); Calcium 9.1 mg/dL (8.5-10.5); Carbon Dioxide 23 mmol/L (22-29); Chloride 102 mmol/L (98-107); Globulin 2.8 g/dL (1.3-4.6); Glucose 115 mg/dL (65-115); Magnesium 2.2 mg/dL (1.7-2.3); Osmolality Calculated 288 mOsm/kg (285-295); Phosphorus 4.2 mg/dL (2.5-4.5); Potassium 5.3 mmol/L (3.5-5.1); Sodium 136 mmol/L (136-145); Total Bilirubin 0.3 mg/dL (0.15-1.2); Total Protein 6.2 g/dL (6.6-8.7)
[2021-01-27] MEDS: enoxaparin 80 mg/0.8 mL Syringe SUBCUT (06:03)
[2021-01-27] MEDS: HYDROcodone-acetaminophen 5-325 mg Tablet 1 TAB PO ×3 (06:04→22:22)
[2021-01-27 06:13] LABS: Estmated Average Glucose 111; Hemoglobin A1C 5.5 % (4.0-6.0)
[2021-01-27] MEDS: benzonatate 100 mg Capsule PO ×3 (08:03→22:22)
[2021-01-27] MEDS: atorvastatin 40 mg Tablet 20 MG PO (08:03)
[2021-01-27] MEDS: ascorbic acid 500 mg Tablet PO (08:03)
[2021-01-27] MEDS: metoprolol tartrate 50 mg Tablet PO ×2 (08:04→17:16)
[2021-01-27] MEDS: azithromycin 250 mg Tablet 500 MG PO (08:04)
[2021-01-27] MEDS: ferrous gluconate 324 mg Tablet PO ×2 (08:05→17:16)
[2021-01-27] MEDS: ipratropium-albuterol 3 mL Neb INHALATION ×3 (09:09→20:41)
[2021-01-27] MEDS: budesonide 0.5 mg/2 mL Neb INHALATION ×2 (09:09→20:41)
--- NOTE | 2021-01-27 12:59 | PM.PN ---
Vitals/I&O/Wt Last Vital Signs Temp 97.7 F 01/27/21 08:00 Pulse 62 01/27/21 09:15 Resp 17 01/27/21 09:15 BP 144/58 01/27/21 08:00 Pulse Ox 96 01/27/21 09:15 01/26/21 01/27/21 01/27/21 22:59 06:59 14:59 Intake Total 50 / 50 240 / 240 Output Total 0 / 0 Balance 50 / 50 240 / 240 Weight last 48 hrs Weight 78.88 kg Weight 77.111 kg Physical Exam Narrative: EXAM NARRATIVE: General: No acute distress, AO x3, chronically sick appearing HEENT: PERRLA, pupils bilaterally equal and reactive Chest: Bilateral breath sounds, bilateral coarse crepitations present, equal good air entry bilaterally CVS: S1-S2 regular, no murmurs, no tachycardia, no gallops, no rubs Abdomen: Soft, nontender, mass felt in right lower quadrant and groin area, bowel sounds present, Neuro: No focal deficits, no facial deformity, AO x3, power 5/5 in all limbs Data : 01/27/21 05:19 01/27/21 05:19 Micro: Microbiology 01/26/21 18:12 Bacterial Antigens - Final Urine Kidney 01/26/21 18:12 Legionella Urinary Antigen - Final Urine,Clean Catch 01/26/21 20:16 Blood Culture - Preliminary Blood SPECIMEN COLLECTED 01/26/21 20:16 Blood Culture - Preliminary Blood SPECIMEN COLLECTED A&P Assessment and plan (1) Hypoxia: Status: Acute (2) SOB (shortness of breath): Status: Acute (3) Metastatic cancer to lung: Status: Acute (4) Metastatic cancer to liver: Status: Acute (5) Hyperlipidemia: Status: Acute Qualifiers: Hyperlipidemia type: mixed hyperlipidemia Qualified Code(s): E78.2 - Mixed hyperlipidemia (6) Hypertension: Status: Acute Qualifiers: Hypertension type: essential hypertension Qualified Code(s): I10 - Essential (primary) hypertension (7) ASHD (arteriosclerotic heart disease): Status: Acute (8) COPD (chronic obstructive pulmonary disease): Status: Acute Qualifiers: COPD type: unspecified COPD Qualified Code(s): J44.9 - Chronic obstructive pulmonary disease, unspecified (9) COVID-19: Status: Acute (10) Hospice care: Status: Acute Additional A&P Information Hypoxia/shortness of breath: Most likely secondary to metastatic cancer to lung COVID-19 antigen positive though chest CT negative for infiltrates. CT scan done with contrast but not CTA so cannot rule out pulmonary embolism. D-dimer elevated. Continue with treatment for community-acquired pneumonia therapy with azithromycin and ceftriaxone. DuoNeb 6 hourly, budesonide twice daily. Solu-Medrol 40 mg IV daily. Stop anticoagulation given the goals of care discussion of hospice. Continue other chronic medication including amlodipine, aspirin, fenofibrate, metoprolol, Flomax, pravastatin. Hypertension: Goal blood pressure less than 140/90 mmHg. Continue home dose of amlodipine. Will increase medicines as needed. Goals of care: Given a possible metastatic disease of high likelihood with mets to liver, lungs we discussed the options with patient and patient's at bedside of possible biopsy, pathology and subsequent chemotherapy/radiation therapy depending on the results versus possible hospice given the extent of metastasis. Patient states he is going to be 86 next year month and he has had a good life and he does not want to go through the biopsy and subsequent chemotherapy for radiation therapy and would rather be comfortable in his left days and let nature takes its own course. CODE STATUS: DNR/DNI. Hospice referral. Cardiac regular diet. Full dose Lovenox will help with DVT prophylaxis. Famotidine for PUD prophylaxis. Discharge planning: Discharge home with hospice once arrangements made. Attestations Medical Necessity Statement*: Requires further hospitalization for hospice set up due to advanced metastatic cancer Time Spent in Patient Care: 16 - 35 minutes Coding Level of Care Code Acute [employer] [facility] Diagnoses Hypoxia R09.02 SOB (shortness of breath) R06.02 Metastatic cancer to lung C78.00 Metastatic cancer to liver C78.7 Hyperlipidemia E78.2 Hyperlipidemia type: mixed hyperlipidemia Hypertension I10 Hypertension type: essential hypertension ASHD (arteriosclerotic heart disease) I25.10 COPD (chronic obstructive pulmonary disease) J44.9 COPD type: unspecified COPD COVID-19 U07.1 Hospice care Z51.5
[2021-01-27] MEDS: lactulose oral liq 20 gm/30 mL UDC 10 GM PO (15:17)
[2021-01-27 15:25] LABS: Coronavirus Test Green County Detected
[2021-01-27] MEDS: cefTRIAXone 1,000 MG in sodium chloride 0.9% (plus) 50 ML 100 MG IV (17:15)
[2021-01-27] MEDS: fenofibrate 145 mg Tablet PO (17:16)
[2021-01-27] MEDS: aspirin 81 mg EC Tablet PO (17:16)
--- NOTE | 2021-01-27 17:21 | USCV_ITS ---
Paul Epps Age: 85 Gender: M : 1935 Exam Date: 01/27/2021 09:53 Ordering Phys: Jonathan Lenz MD Technologist: Mihaela Ga [place] [facility] [place]: CAD, CHF, COVID BP: 161 / 74 HR: 66 Rhythm: Sinus Technical Quality: Good MEASUREMENTS (Male / Female) Normal Values 2D ECHO LV Diastolic Diameter PLAX 4.4 cm 4.2 - 5.9 / 3.9 - 5.3 cm LV Systolic Diameter PLAX 2.6 cm IVS Diastolic Thickness 1.5 cm 0.6 - 1.0 / 0.6 - 0.9 cm IVS Systolic Thickness 1.7 cm LVPW Diastolic Thickness 1.3 cm 0.6 - 1.0 / 0.6 - 0.9 cm LVPW Systolic Thickness 1.8 cm LV Ejection Fraction 2D Teich 71.2 % LV Ejection Fraction MOD 2C 62.3 % LV Ejection Fraction 2C AL 61.3 % LA Diameter 3.0 cm LA Width 2.5 cm LA Height 4.3 cm RA Width 3.2 cm RA Height 4.7 cm Aorta at Sinotubular Diameter 2.8 cm DOPPLER AV Peak Velocity 173.0 cm/s LVOT Peak Velocity 101.0 cm/s MV Peak Velocity 106.0 cm/s MV Area PHT 3.6 cm squared Mitral E to A Ratio 1.0 MV E' Velocity 47.5 cm/s Mitral E to MV E' Ratio 11.4 Mitral E to LV E' Lateral Ratio 10.4 Mitral E to LV E' Septal Ratio 12.7 TR Peak Velocity 289.5 cm/s TR Peak Gradient 33.5 mmHg Right Atrial Pressure 3.0 mmHg Pulmonary Artery Systolic Pressu 36.5 mmHg PV Peak Velocity 102.0 cm/s RV Acceleration Time 0.1 s RV Ejection Time 0.3 s RV AcT/ET 0.4 FINDINGS Left Ventricle Normal left ventricular size and systolic function, EF 62 %. No regional wall motion abnormalities. Mild left ventricular hypertrophy. Grade I/IV diastolic dysfunction (abnormal relaxation filling pattern), normal to mildly elevated filling pressures. Right Ventricle The right ventricle is normal in size and function. Right Atrium The right atrium is normal in size. Left Atrium Mildly increased left atrial size. Mitral Valve Thickened mitral valve. Mild mitral valve regurgitation. Aortic Valve Thickened aortic valve. Tricuspid Valve Trace to mild tricuspid valve regurgitation. Pulmonic Valve No gross abnormalities noted Pericardium Normal pericardium without effusion. Aorta Normal ascending aorta dimension. CONCLUSIONS Normal left ventricular size and systolic function, EF 62 %. No regional wall motion abnormalities. Mild left ventricular hypertrophy. Grade I/IV diastolic dysfunction (abnormal relaxation filling pattern), normal to mildly elevated filling pressures. Minimally thickened aortic and mitral valves. Mildly increased left atrial size. Mild mitral valve regurgitation. Trace to mild tricuspid valve regurgitation. There is no pericardial effusion. No previous study is available for comparison. Dr Maverick Benavides MD [facility] (Electronically Signed) Final Date: 28 January 2021 00:20 S
--- NOTE | 2021-01-27 19:15 | PC.NURSE ---
Report to Lilliam MENJIVAR
[2021-01-28] VITALS (7 sets, daily range): BP systolic 91–181; BP diastolic 52–77; PULSE 54–122; RESP 15–20; TEMP 36.3–36.5; O2SAT 92–98
[2021-01-28] MEDS: ipratropium-albuterol 3 mL Neb INHALATION ×2 (03:32→08:42)
[2021-01-28] MEDS: famotidine 20 mg/2 mL INJ IVP (06:10)
[2021-01-28] MEDS: tamsulosin 0.4 mg Capsule PO (06:10)
[2021-01-28] MEDS: amlodipine 5 mg Tablet 2.5 MG PO (06:10)
[2021-01-28] MEDS: budesonide 0.5 mg/2 mL Neb INHALATION (08:42)
[2021-01-28] MEDS: ascorbic acid 500 mg Tablet PO (09:43)
[2021-01-28] MEDS: metoprolol tartrate 50 mg Tablet PO (09:43)
[2021-01-28] MEDS: ferrous gluconate 324 mg Tablet PO (09:44)
[2021-01-28] MEDS: atorvastatin 40 mg Tablet 20 MG PO (09:44)
[2021-01-28] MEDS: benzonatate 100 mg Capsule PO ×2 (09:44→14:08)
[2021-01-28] MEDS: azithromycin 250 mg Tablet 500 MG PO (09:44)
[2021-01-28] MEDS: HYDROcodone-acetaminophen 5-325 mg Tablet 1 TAB PO (10:13)
--- NOTE | 2021-01-28 13:07 | P.DS_ITS ---
Discharge Providers Date of Admission: 01/26/21 17:00 Date of Discharge: January 28, 2021 Attending Provider at Admission: Jonathan Lenz MD Attending Provider at Discharge: Jonathan Lenz MD Primary Care Provider: Dakotah Burgess MD Diagnoses at Discharge Discharge Diagnosis (1) Hypoxia: Status: Acute (2) SOB (shortness of breath): Status: Acute (3) Metastatic cancer to lung: Status: Acute (4) Metastatic cancer to liver: Status: Acute (5) Hyperlipidemia: Status: Acute Qualifiers: Hyperlipidemia type: mixed hyperlipidemia Qualified Code(s): E78.2 - Mixed hyperlipidemia (6) Hypertension: Status: Acute Qualifiers: Hypertension type: essential hypertension Qualified Code(s): I10 - Essential (primary) hypertension (7) ASHD (arteriosclerotic heart disease): Status: Acute (8) COPD (chronic obstructive pulmonary disease): Status: Acute Qualifiers: COPD type: unspecified COPD Qualified Code(s): J44.9 - Chronic obstructive pulmonary disease, unspecified (9) COVID-19: Status: Acute (10) Hospice care: Status: Acute Reason for Visit Reason for Visit: SOB, LOW O2: 87% Hospital Course Hospital Course Paul pEps is a 85 year old male with past medical history of hypertension, hyperlipidemia, COVID-19 in April 16, 2020, post vaccination in August, CAD, COPD presented to the ER today with worsening difficulty in breathing. Patient states his breathing has been getting worse for last year and a half or 2 but has gotten acutely worse for last 1 month and more so for last 1 week. Currently is not able able to walk from his room to his bathroom without getting difficult out of breath. He has not used oxygen before. Denies any nausea vomiting, headache, fevers. States he is producing phlegm but has been chronica lly doing the same for last couple of months. Complains of pain in his right groin. He states he had a pea-sized mass 2 months ago which has been gradually increasing and currently is a size of a tennis ball. He also states he was to get a CT scan today for cancer work-up. Denies any chest pain. Showed a white count 10.2, hemoglobin of 10.6, D-dimer of 1.21, sodium of 134, creatinine of 1.3, BNP of [address] chest abdomen pelvis results as below. Given a possible metastatic disease of high likelihood with mets to liver, lungs we discussed the options with patient and patient's at bedside of possible biopsy, pathology and subsequent chemotherapy/radiation therapy depending on the results versus possible hospice given the extent of metastasis. Patient states he is going to be 86 next year month and he has had a good life and he does not want to go through the biopsy and subsequent chemotherapy for radiation therapy and would rather be comfortable in his left days and let nature takes its own course. Patient was admitted to the hospital for further care. Hospice referral was sent out. During hospitalization patient was found to be COVID-19 positive. It was further discussed with the family that his symptoms and severe hypoxia is most likely secondary to extensive cancer rather than COVID-19. Family verbalized understanding and wanted to continue with hospice care. Patient is being discharged after hospice care has been arranged. Physical Exam Narrative: EXAM NARRATIVE: General: No acute distress, AO x3, chronically sick appearing HEENT: PERRLA, pupils bilaterally equal and reactive Chest: Bilateral breath sounds, bilateral coarse crepitations present, equal good air entry bilaterally CVS: S1-S2 regular, no murmurs, no tachycardia, no gallops, no rubs Abdomen: Soft, nontender, mass felt in right lower quadrant and groin area, bowel sounds present, Neuro: No focal deficits, no facial deformity, AO x3, power 5/5 in all limbs Discharge Data Data Completed and Pending: Completed Studies During Hospitalization Category Date Time Status CT chest abd pel w con* Urgent Cat Scan 01/26/21 14:19 Completed XR chest 1V giovanni ble [id number] Stat Exams 01/26/21 13:30 [place] [id number] Urgent Ultrasound 01/26/21 15:53 Completed CV. echo complete * [id number] Routine Ultrasound 01/27/21 17:21 Completed Pending at discharge Category Date Time Status Blood Culture Sta t Lab 01/26/21 20:16 Results Labs from last 24 hours 01/27/21 06:30 Nasal/Oral COVID-1 9 PCR Detected H Vitals: Last Vital Signs Temp 97.7 F 01/28/21 08:00 Pulse 71 01/28/21 08:55 Resp 20 H 01/28/21 08:55 BP 181/72 01/28/21 08:00 Pulse Ox 92 01/28/21 08:55 Discharge Plan Discharge Patient Disposition: Hospice - Home Condition: Stable Prescriptions: New azithromycin 250 mg Tablet 500 mg PO DAILY 3 Days Qty: 6 RF: 0 ferrous gluconate 324 mg (37.5 mg iron) Tablet 324 mg PO BIDWM 30 Days Qty: 30 RF: 0 levofloxacin 500 mg tablet 500 mg PO Q24H 3 Days Qty: 3 RF: 0 Continued budesonide-formoterol 160-4.5 mcg/actuation HFA aerosol inhaler 2 puff inhalation BID RF: 0 metoprolol tartrate 50 mg tablet 50 mg PO BID Qty: 180 RF: 3 hydrocodone-acetaminophen 5-325 mg tablet 1 - 2 tab PO TID PRN (Reason: Pain) RF: 0 tamsulosin [Flomax] 0.4 mg capsule 0.4 mg PO BID@06,18 RF: 0 albuterol sulfate [Ventolin HFA] 90 mcg/actuation HFA aerosol inhaler 2 puff INHALATION QID PRN (Reason: Shortness Of Breath) RF: 0 cetirizine [Zyrtec] 10 mg tablet 10 mg PO DAILY PRN (Reason: Allergic Symptoms) RF: 0 Symbicort 80-4.5 mcg/actuation HFA aerosol inhaler 2 puff INHALATION Q12H RF: 0 carisoprodol 350 mg tablet 350 mg PO BID PRN (Reason: Pain) RF: 0 amlodipine 2.5 mg tablet 2.5 mg PO DAILY@0600 Qty: 90 RF: 3 aspirin [Adult Low Dose Aspirin] 81 mg tablet,delayed release (DR/EC) 81 mg PO DAILY@18 Qty: 90 RF: 3 enalapril maleate 20 mg tablet 20 mg PO BID@0600,1800 Qty: 180 RF: 3 fenofibrate nanocrystallized 145 mg tablet 145 mg PO DAILY@1800 Qty: 90 RF: 3 furosemide 20 mg tablet 20 mg PO DAILY@0600 Qty: 90 RF: 3 nitroglycerin [Nitrostat] 0.4 mg tablet, sublingual 0.4 mg SUBLINGUAL Q5M PRN (Reason: chest pains) Qty: 50 RF: 1 nitroglycerin [Nitro-Time] 6.5 mg capsule, extended release 6.5 mg PO BID@0600,1800 Qty: 180 RF: 3 Lumigan 0.01 % drops 1 drp ophthalmic (eye) DAILY@18 RF: 0 ascorbic acid (vitamin C) [Vitamin C] 500 mg Tablet 500 mg PO DAILY RF: 0 Centrum Silver Tablet 1 tab PO DAILY RF: 0 Spiriva with HandiHaler 18 mcg capsule, w/inhalation device 1 cap INHALATION DAILY RF: 0 pravastatin 80 mg tablet 80 mg PO DAILY RF: 0 Discharge Orders: Discharge Order (Routine); Ordered 01/28/21 Ordered By: Jonathan Lenz Referrals: [facility] [place] [facility] ([facility]) [Outside] ([facility] has accepted you. If you need anything or have any questions please contact them at [phone].) Dakotah Burgess MD [Primary Care Provider] - Discharge Diet: Usual diet Discharge Activity: Resume usual activity Patient Instructions: Opioid Safety Activity Restrictions/Additional Instructions: Hospice care Discharge Attestations Time Spent in Discharge Care*: greater than 30 min Quality Metrics Clinical Quality Measures During this hospital stay, did patient experience: None Coding Level of Care Code Acute [facility] note Diagnoses Hypoxia R09.02 SOB (shortness of breath) R06.02 Metastatic cancer to lung C78.00 Metastatic cancer to liver C78.7 Hyperlipidemia E78.2 Hyperlipidemia type: mixed hyperlipidemia Hypertension I10 Hypertension type: essential hypertension ASHD (arteriosclerotic heart disease) I25.10 COPD (chronic obstructive pulmonary disease) J44.9 COPD type: unspecified COPD COVID-19 U07.1 Hospice care Z51.5
--- NOTE | 2021-01-28 14:39 | PC.RESP ---
RT Shift Note Frequent safety and respiratory rounds continue. Orders completed as indicated. Patient monitored pre and post treatments throughout shift. Patient [Did.] tolerate treatments appropriately. Condition [.DidNotChange]. Patient and/or accounts payable representative educated on respiratory treatment and medications. Patient and/or accounts payable representative [verbalized understanding]. Will continue to monitor patient progress.
--- NOTE | 2021-01-28 15:12 | PC.NURSE ---
PT HAS DONE WELL FOR ME TODAY. PT HAS JUST HAD MINIMAL COMPLAINTS OF PAIN BUT PAIN APPEARS TO BE CONTROLLED BY ORDERED PRN PAIN MEDICATIONS. PT IS READY TO DISCHARGE TODAY. PT WILL DISCHARGE TODAY PER MD ON HOSPICE. DISCHARGE PAPERWORK GONE OVER WITH PT. ALL QUESTIONS ANSWERED. PRESCRIPTIONS GIVEN TO PT. IV REMOVED. PT TOLERATED WELL. CATHETER TIP INTACT. PT SAFELY WHEELED OUT BY THIS NURSE.
--- NOTE | 2021-01-29 10:32 | PC.SOCIAL ---
discharge follow up call made. spoke with patients . isn't sure about the new medications she doesn't seem to have any prescriptions. Hospice did make a home visit yesterday so story writer called and they took rx to get them filled and will bringing them today, story writer relayed this message to . was also given date and time of follow up with dr. marti, she wanted a later time, story writer called dr. marti's office and that was the only time they had all week, she is ok with keeping that appointment.
== END 2021-01-28 15:16 | disposition hospice, home (50) | DRG 180 ==
LOC: ER 16:58 → MEDSURG 17:57
PROVIDERS: Admitting Provider Student in an Organized Health Care Education/Training Program; Emergency Provider Physician Assistant; PCP Family Medicine; Visit Provider Student in an Organized Health Care Education/Training Program
DX: C78.01 Secondary malignant neoplasm of right lung (principal); U07.1 COVID-19; J18.9 Pneumonia, unspecified organism; C78.7 Secondary malignant neoplasm of liver and intrahepatic bile duct; C78.1 Secondary malignant neoplasm of mediastinum; J44.0 Chronic obstructive pulmonary disease with (acute) lower respiratory infection; C78.02 Secondary malignant neoplasm of left lung; C80.1 Malignant (primary) neoplasm, unspecified; I10 Essential (primary) hypertension; E78.2 Mixed hyperlipidemia; I25.10 Atherosclerotic heart disease of native coronary artery without angina pectoris; Z87.891 Personal history of nicotine dependence; Z66 Do not resuscitate; Z86.16 Personal history of COVID-19; D49.89 Neoplasm of unspecified behavior of other specified sites
CPT/HCPCS: 36415; 71045; 71260; 74177; 80053; 81003; 83036; 83540; 83550; 83735; 83880; 84100; 84145; 84443; 84484; 85025; 85378; 86403; 87040; 87426; 87449; 87635; 87641; 93005; 93306; 93971; 94640; 96372; 96374; 96375; 99285; J0696; J1650; J2270; J2405; J2920; J3490; J7626; Q0144; Q9967